=== PATIENT | male | born 1985 | race African-American/Black ===

== ENCOUNTER 2019-06-15 21:36 | Emergency (ER) | payer OTHER ==
--- NOTE | 2019-06-15 22:19 | ER Document Report ---
ED General - General Chief Complaint: Productive Cough Stated Complaint: COUGH,WHEEZING Time Seen by Provider: 06/15/19 22:12 Primary Care Provider: MARNI LUIS [Primary Care Provider] - 06/19/19 Notes: Patient is a pleasant 33-year-old male who presents with complaint of difficulty breathing. He says is been ongoing for 2 weeks. He has no history of asthma. He is a smoker. He has been coughing some. He has had some intermittent wheezing. No history of PE or DVT. No leg swelling or edema. No other complaints at this time. No fevers. Does not take any medications on a regular basis. TRAVEL OUTSIDE OF THE [place] IN LAST 30 DAYS: No - Related Data Allergies/Adverse Reactions: No Known Allergies Allergy (Verified 06/15/19 21:38) Past Medical History - Social History Smoking Status: Current Every Day Smoker Frequency of alcohol use: None Drug Abuse: None Family History: Reviewed & Not Pertinent - Past Medical History Cardiac Medical History: Reports: Hx Hypertension Psychiatric Medical History: Reports: Hx Anxiety - Immunizations Immunizations up to date: Yes Hx Diphtheria, Pertussis, Tetanus Vaccination: Yes Review of Systems - Review of Systems Notes: My Normal Review Basic REVIEW OF SYSTEMS: CONSTITUTIONAL : Denies fever, chills, or sweats. Denies recent illness. EENT: Denies eye, ear, throat, or mouth pain or symptoms. Denies nasal or sinus congestion. CARDIOVASCULAR: Denies chest pain. RESPIRATORY: Denies cough, cold, or chest congestion. Difficulty breathing and coughing GASTROINTESTINAL: Denies abdominal pain. Denies nausea, vomiting, or diarrhea. MUSCULOSKELETAL: Denies neck or back pain or joint pain or swelling. SKIN: Denies rash or skin lesions. NEUROLOGICAL: Denies altered mental status or loss of consciousness. Denies headache. Denies weakness or paralysis or loss of use of either side. Denies problems with gait or speech. Denies sensory or motor loss. ALL OTHER SYSTEMS REVIEWED AND NEGATIVE. Physical Exam - Vital signs Vitals: Temp Pulse Resp BP Pulse Ox 98.8 F 130 H 22 H 180/121 H 97 06/15/19 21:51 06/15/19 21:51 06/15/19 21:51 06/15/19 21:51 06/15/19 21:51 - Notes Notes: General Appearance: Well nourished, alert, cooperative, no acute distress, no obvious discomfort. Vitals: reviewed, See vital signs table. Head: no swelling or tenderness to the head Eyes: PERRL, EOMI, Conjuctiva clear Mouth: No decreasd moisture Throat: No tonsillar inflammation, No airway obstruction, No lymphadenopathy Neck: Supple, no neck tenderness Lungs: No wheezing, No rales, No rhonci, No accessory muscle use, good air exchange bilaterally. Heart: Tachycardic rate, Regular rythm, No murmur, no rub Abdomen: Normal BS, soft, No rigidity, No abdominal tenderness, No guarding, no rebound, no abdominal masses, no organomegaly Extremities: strength 5/5 in all extremities, good pulses in all extremities, no swelling or tenderness in the extremities Skin: warm, dry, appropriate color, no rash Neuro: speech clear, oriented x 3, normal affect, responds appropriately to questions. Course - Re-evaluation Re-evalutation: 06/15/19 22:27 Patient currently is very tachycardic and apparently is again short of breath on exertion. When into the room sitting in bed looks very comfortable. He said he said some normal wheezing however his lung kirk are completely clear at this time and he has good air movement yet he still very tachycardic. We will start off with the chest x-ray. If this is negative then I will proceed to a CTa of the chest. 06/16/19 03:16 CTa of the chest was negative. His tachycardia is improved. He did receive amlodipine for his high blood pressure. He has not had any adverse reactions to this. He does have the T wave inversions in lateral precordial leads as well as an indeterminate troponin. I suspect this is probably related to his chronic untreated hypertension; however, I informed him that we do need to repeat his troponin to make sure it is not increasing and that is staying below [place] threshold. Patient initially agreeable to this. Approximately 10 minutes after I spoke with the patient the nurse came and informed her that the patient no longer wants to stay and has to leave because his has to go to work. I have went back in informed the patient that I still feel that we need to do this test to make sure that his heart enzyme is negative. Patient says that he cannot stay. I therefore have offered to have him to draw the test and then discharge him and I have gotten the patient's phone number to call back with the results. Patient is agreeable to this. I suspect the patient's difficulty breathing and intermittent wheezing likely is related to exposure of mold in his house. Patient says he has mold in the house that he is renting and he has noticed that anytime he is at home he starts wheezing and having difficulty breathing but when he gets away from the house the coughing wheezing gets better. Since he has been here and away from his house he has not had any wheezing and he initially had a little cough but that has resolved without any intervention. His lung kirk remain completely clear and his oxygen saturation is normal. He says he does have another place he can stay at. He said he will contact his landlord in regards to the mold in his house to make sure that he is no longer having to stay there. Patient strongly encouraged to return to ER immediately if he has any recurrence of his symptoms, any chest pain, fevers, or if he feels that he is worsening in any way. Patient agrees with plan will be discharged home as he request. Dictation of this chart was performed using voice recognition software; therefore, there may be some unintended grammatical errors. - Vital Signs Vital signs: Temp Pulse Resp BP Pulse Ox 98.6 F 103 H 20 157/122 H 100 06/16/19 03:00 06/16/19 03:00 06/16/19 03:00 06/16/19 03:00 06/16/19 03:00 - Laboratory Result Diagrams: 06/15/19 22:36 06/15/19 22:36 Laboratory results interpreted by me: 06/15/19 22:36 Hgb 12.9 L - EKG Interpretation by Me Additional EKG results interpreted by me: 06/15/19 22:19 EKG is reviewed and interpreted by me. EKG shows sinus tachycardia with a rate of [address] segment elevation or depression. He does have some T wave inversions in the lateral precordial leads. NH interval, QRS duration, QT in tervals are within normal range. No old EKG available for comparison. Discharge - Discharge Clinical Impression: Dyspnea Qualifiers: Dyspnea type: unspecified Qualified Code(s): R06.00 - Dyspnea, unspecified Condition: Stable Disposition: HOME, SELF-CARE Additional Instructions: I suspect your difficulty breathing is likely related to mold exposure in your house. This is because your breathing is worse when you are at the house. Your breathing has been good since you have been here and your lung kirk are clear. CT scan of your lungs did not show any blood clots. You do have high blood pressure. I will start you on medication called amlodipine. Please start taking this medication every day. I did repeat your heart enzyme. As discussed with you, we are awaiting the results of this. I will call you later today with the results. If this heart enzyme is elevated you will have to return to the ER for further treatment and work-up. Please return to ER immediately if you have recurrent difficulty breathing, any chest pain, passing out episodes, or if you feel like you are worsening in any way. Please follow up with your primary care doctor for reevaluation on Wednesday or Wednesday and also for continued management of your high blood pressure. Prescriptions: Amlodipine Besylate [Norvasc 5 mg Tablet] 5 mg PO DAILY #30 tablet Forms: Return to Work Referrals: [facility] [[facility] Care [facility]] - 06/19/19
[2019-06-15 22:59] LABS: ABSOLUTE BASOPHILS # (AUTO) 0.1 10^3/uL (0.0-0.2); ABSOLUTE LYMPHOCYTES (AUTO) 2.2 10^3/uL (0.5-4.7); ABSOLUTE MONOCYTES (AUTO) 0.7 10^3/uL (0.1-1.4); ABSOLUTE NEUT (AUTO) 3.9 10^3/uL (1.7-8.2); BASOPHILS % (AUTO) 1.1 % (0-2); EOSINOPHILS % (AUTO) 0.7 % (0-6); HEMATOCRIT 38.1 % (37.9-51.0); HEMOGLOBIN 12.9 g/dL (13.5-17.0); LYMPHOCYTES % (AUTO) 31.8 % (13-45); MEAN CORPUSCULAR HEMOGLOBIN 27.6 pg (27.0-33.4); MEAN CORPUSCULAR HGB CONC 33.8 g/dL (32.0-36.0); MEAN CORPUSCULAR VOLUME 82 fl (80-97); MONOCYTES % (AUTO) 9.7 % (3-13); PLATELET COUNT 220 10^3/uL (150-450); RED BLOOD COUNT 4.66 10^6/uL (4.35-5.55); RED CELL DISTRIBUTION WIDTH 13.9 % (11.5-14.0); SEGMENTED NEUTROPHILS % (AUTO) 56.7 % (42-78); TOTAL CELLS COUNTED % (AUTO) 100 %; WHITE BLOOD COUNT 6.9 10^3/uL (4.0-10.5)
[2019-06-15 23:09] LABS: ALANINE AMINOTRANSFERASE 22 U/L (21-72); ALBUMIN 4.6 g/dL (3.5-5.0); ALKALINE PHOSPHATASE 79 U/L (38-126); ANION GAP 10 (5-19); ASPARTATE AMINO TRANSFERASE 28 U/L (17-59); BILIRUBIN,DIRECT 0.1 mg/dL (0.0-0.4); BILIRUBIN,TOTAL 0.9 mg/dL (0.2-1.3); BLOOD UREA NITROGEN 12 mg/dL (7-20); CARBON DIOXIDE 29 mmol/L (22-30); CHLORIDE 102 mmol/L (98-107); GLUCOSE 95 mg/dL (75-110); POTASSIUM 3.9 mmol/L (3.6-5.0); TOTAL PROTEIN 7.8 g/dL (6.3-8.2)
[2019-06-15] MEDS ORDERED: NORMAL SALINE 500 ML IV ONE (23:28)
[2019-06-15 23:29] LABS: VENOUS BLOOD BASE EXCESS 0.1 mmol/L; VENOUS BLOOD HCO3 25.1 mmol/L (20-32); VENOUS BLOOD PCO2 42.2 mmHg (35-63); VENOUS BLOOD PH 7.39 (7.30-7.42)
--- NOTE | 2019-06-16 01:32 | RADIOLOGY REPORT (SQ) ---
EXAM DESCRIPTION: CT CHEST ANGIOGRAPHY WITHOUT THEN WITH IV CONTRAST COMPLETED DATE/TME: 06/15/2019 23:28 CLINICAL HISTORY: 33 years Male, dyspnea, tachycardia Comparison: CR, same day. Technique: IV contrast. Coronal and sagittal reformat. 3d reconstruction. This exam was performed according to our departmental dose-optimization program, which includes automated exposure control, adjustment of the mA and/or kV according to patient size and/or use of iterative reconstruction technique.[facility]: Dose Right [facility]: CareDose [facility]: Dose Right [facility]: Teradose 4D [facility]: [employer] LIMITATIONS: None Findings: No pulmonary embolus. No right ventricular strain. Clear lungs. Gynecomastia. Inferior neck, axillae, mediastinum, airway, lymphatics, heart, vasculature, upper abdomen, and musculoskeleton appear otherwise unremarkable. Impression: No pulmonary embolus. No acute cardiopulmonary findings.
[2019-06-16] MEDS ORDERED: AMLODIPINE BESYLATE 5 MG TABLET PO ONE (02:45)
[2019-06-16 03:02] VITALS: BP 157/122
[2019-06-16 04:15] LABS: TROPONIN I 0.087 ng/mL
--- NOTE | 2019-06-16 05:55 | RADIOLOGY REPORT (SQ) ---
Chest single view on 06/15/2019 at 10:57 PM CLINICAL INDICATION: Shortness of breath COMPARISON: None FINDINGS: There is mild elevation of the right hemidiaphragm. Mild cardiomegaly is noted. Bilateral interstitial opacities are consistent with mild edema. Hilar and mediastinal contours are within normal limits. No bony abnormality is noted. IMPRESSION: Findings consistent with mild changes of CHF.
--- NOTE | 2019-06-16 14:30 | EKG REPORT ---
SEVERITY:- ABNORMAL ECG - SINUS TACHYCARDIA ABNORMAL T, CONSIDER ISCHEMIA, LATERAL LEADS : Confirmed by: Clementina Castillo MD 16-Jun-2019 14:30:15
== END 2019-06-16 03:34 | disposition home or self-care (01) ==
LOC: ER 21:36
DX: R06.00 Dyspnea, unspecified (principal); R05 Cough; R06.2 Wheezing; F17.200 Nicotine dependence, unspecified, uncomplicated; I10 Essential (primary) hypertension; F41.9 Anxiety disorder, unspecified
CPT/HCPCS: 93005; 99284; 96360; 36415; 85025; 80053; 84484; 82803; 83880; 71045; 71275; 93010; J7040

== ENCOUNTER 2019-08-30 19:46 | Inpatient (IN) | payer OTHER ==
[2019-08-30] MEDS ORDERED: ASPIRIN 81 MG TABLET, CHEWABLE PO ONE (20:10)
--- NOTE | 2019-08-30 20:13 | ER Document Report ---
ED Medical Screen (RME) - General Chief Complaint: Shortness Of Breath Stated Complaint: SHORTNESS OF BREATH Time Seen by Provider: 08/30/19 20:06 Primary Care Provider: MARNI LUIS [Primary Care Provider] - Follow up as needed Notes: Patient is a 34-year-old male who presents emergency department with a chief complaint of shortness of breath. He states that he has felt shortness of breath for the past week. Today he started to have some chest pain. States the pain is on the left side of his chest. Patient denies any fevers. Past medical history includes hypertension he is currently on amlodipine. States that he ran out of his medication yesterday. Exam: Tachycardic. Diminished breath sounds in the bases. I have greeted and performed a rapid initial assessment of this patient. A comprehensive ED assessment and evaluation of the patient, analysis of test results and completion of medical decision making process will be conducted by an additional ED providers. TRAVEL OUTSIDE OF THE [place] IN LAST 30 DAYS: No - Related Data Allergies/Adverse Reactions: No Known Allergies Allergy (Verified 08/30/19 20:01) Past Medical History - Social History Chew tobacco use (# tins/day): No Frequency of alcohol use: None Drug Abuse: None - Past Medical History Cardiac Medical History: Reports: Hx Hypertension Renal/ Medical History: Denies: Hx Peritoneal Dialysis Psychiatric Medical History: Reports: Hx Anxiety - Immunizations Immunizations up to date: Yes Hx Diphtheria, Pertussis, Tetanus Vaccination: Yes Physical Exam - Vital signs Vitals: Temp Pulse Resp BP Pulse Ox 98.3 F 130 H 18 157/116 H 99 08/30/19 19:51 08/30/19 19:51 08/30/19 19:51 08/30/19 19:51 08/30/19 19:51 Course - Vital Signs Vital signs: Temp Pulse Resp BP Pulse Ox 98.3 F 131 H 22 H 164/115 H 100 08/30/19 20:01 08/30/19 20:01 08/30/19 20:01 08/30/19 20:01 08/30/19 20:01 Doctor's Discharge - Discharge Referrals: [facility] [Primary Care Provider] - Follow up as needed
[2019-08-30 20:48] LABS: ABSOLUTE EOSINOPHILS # (AUTO) 0.1 10^3/uL (0.0-0.6); ABSOLUTE LYMPHOCYTES (AUTO) 1.6 10^3/uL (0.5-4.7); ABSOLUTE MONOCYTES (AUTO) 0.5 10^3/uL (0.1-1.4); ABSOLUTE NEUT (AUTO) 3.3 10^3/uL (1.7-8.2); BASOPHILS % (AUTO) 0.2 % (0-2); HEMATOCRIT 37.3 % (37.9-51.0); HEMOGLOBIN 12.1 g/dL (13.5-17.0); LYMPHOCYTES % (AUTO) 29.4 % (13-45); MEAN CORPUSCULAR HGB CONC 32.5 g/dL (32.0-36.0); MEAN CORPUSCULAR VOLUME 83 fl (80-97); MONOCYTES % (AUTO) 9.6 % (3-13); PLATELET COUNT 212 10^3/uL (150-450); RED CELL DISTRIBUTION WIDTH 14.4 % (11.5-14.0); SEGMENTED NEUTROPHILS % (AUTO) 59.8 % (42-78); TOTAL CELLS COUNTED % (AUTO) 100 %; WHITE BLOOD COUNT 5.4 10^3/uL (4.0-10.5)
--- NOTE | 2019-08-30 20:49 | ER Document Report ---
Entered by ROSAURA MTZ SCRIBE 08/30/192030 Acting as scribe for:DASH GILES MD ED General - General Chief Complaint: Shortness Of Breath Stated Complaint: SHORTNESS OF BREATH Time Seen by Provider: 08/30/19 20:06 Primary Care Provider: TOBY,MARNI [Primary Care Provider] - Follow up as needed Notes: 34-year-old male who presents to the emergency department today with complaints of shortness of breath, cough, and right-sided chest pain which began last week. Patient states he ran out of his blood pressure medicine yesterday and also stopped smoking yesterday. When reviewing the records, the patient received amlodipine #30 on 06/16/2019 and today's date is 08/30/2019. Patient was seen here on June 15, 2019 for shortness of breath and at that time he seemed to think that his symptoms were coming from mold in his house. Patient stated that when he left the house his symptoms would go away and when he would go back in the house his symptoms would start again. Patient states he left that house for several weeks and the symptoms never went away. TRAVEL OUTSIDE OF THE [place] IN LAST 30 DAYS: No - Related Data Allergies/Adverse Reactions: No Known Allergies Allergy (Verified 08/30/19 20:01) Past Medical History - General Information source: Patient - Social History Smoking Status: Current Every Day Smoker Cigarette use (# per day): Yes Chew tobacco use (# tins/day): No Frequency of alcohol use: None Drug Abuse: None Lives with: Family Family History: Reviewed & Not Pertinent Patient has suicidal ideation: No Patient has homicidal ideation: No - Past Medical History Cardiac Medical History: Reports: Hx Hypertension Psychiatric Medical History: Reports: Hx Anxiety - Immunizations Immunizations up to date: Yes Hx Diphtheria, Pertussis, Tetanus Vaccination: Yes Review of Systems - Review of Systems Constitutional: No symptoms reported EENT: No symptoms reported Cardiovascular: See HPI, Chest pain Respiratory: See HPI, Cough, Short of breath Gastrointestinal: No symptoms reported Genitourinary: No symptoms reported Male Genitourinary: No symptoms reported Musculoskeletal: No symptoms reported Skin: No symptoms reported Hematologic/Lymphatic: No symptoms reported Neurological/Psychological: No symptoms reported -: Yes All other systems reviewed and negative Physical Exam - Vital signs Vitals: Temp Pulse Resp BP Pulse Ox 98.3 F 130 H 18 157/116 H 99 08/30/19 19:51 08/30/19 19:51 08/30/19 19:51 08/30/19 19:51 08/30/19 19:51 - Notes Notes: Physical Exam: General: Alert, appears well. HEENT: Normocephalic. Atraumatic. PERRL. Extraocular movements intact. Oropharynx clear. Neck: Supple. Non-tender. Respiratory: No respiratory distress. Coarse breath sounds bilaterally with mild rales. Cardiovascular: Tachycardic, regular rhythm. Abdominal: Normal Inspection. Non-tender. No distension. Normal Bowel Sounds. Back: No gross abnormalities. Extremities: Moves all four extremities. Upper extremities: Normal inspection. Normal ROM. Lower extremities: Normal inspection. No edema. Normal ROM. Neurological: Normal cognition. AAOx4. Normal speech. Psychological: Normal affect. Normal Mood. Skin: Warm. Dry. Normal color. Course - Vital Signs Vital signs: Temp Pulse Resp BP Pulse Ox 98.3 F 131 H 25 H 170/123 H 99 08/30/19 20:01 08/30/19 20:01 08/30/19 22:31 08/30/19 22:31 08/30/19 22:31 - Laboratory Result Diagrams: 08/30/19 20:35 08/30/19 20:35 Laboratory results interpreted by me: 08/30/19 08/30/19 08/30/19 20:35 20:35 20:35 Hgb 12.1 L Hct 37.3 L RDW 14.4 H Creatinine 1.27 H Creatine Kinase 231 H NT-Pro-B Natriuret Pep 2160 H Urine Protein Urine Ketones 08/30/19 21:30 Hgb Hct RDW Creatinine Creatine Kinase NT-Pro-B Natriuret Pep Urine Protein 30 H Urine Ketones TRACE H - Diagnostic Test Radiology reviewed: Image reviewed, Reports reviewed - Seizure medicine pulmonary edema - EKG Interpretation by Me EKG shows normal: Sinus rhythm, [place], Intervals, QRS Complexes. abnormal: ST-T Waves - Lateral T wave abnormalities Rate: Tachycardia - 132 P Waves: LAE When compared to previous EKG there are: No significant change - Consults Dr. Escobar Time consulted: 23:44 Consulted provider: will come to ER Discharge - Discharge Clinical Impression: Congestive heart failure (CHF) Qualifiers: Heart failure type: unspecified Heart failure chronicity: unspecified Qualified Code(s): I50.9 - Heart failure, unspecified Hypertensive cardiomyopathy Qualifiers: Heart failure presence: with heart failure Qualified Code(s): I11.0 - Hypertensive heart disease with heart failure; I43 - Cardiomyopathy in diseases classified elsewhere Condition: Fair Disposition: ADMITTED INPATIENT Admitting Provider: Luz (Hospitalist) Unit Admitted: Telemetry Referrals: [facility] [Primary [facility]] - Follow up as needed Scribe Attestation: 08/30/19 21:44 I personally performed the services described in the documentation, reviewed and edited the documentation which was dictated to the scribe in my presence, and it accurately records my words and actions. I personally performed the services described in the documentation, reviewed and edited the documentation which was dictated to the scribe in my presence, and it accurately records my words and actions.
[2019-08-30] MEDS ORDERED: FUROSEMIDE INJ/PF 20 MG/2 ML SDV IV ONE (20:51)
--- NOTE | 2019-08-30 20:54 | RADIOLOGY REPORT (SQ) ---
EXAM DESCRIPTION: XR CHEST 1 VIEW COMPLETED DATE/TME: 08/30/2019 20:10 CLINICAL HISTORY: chest pain COMPARISON: June 15, 2019 FINDINGS: Cardiac silhouette is unchanged compared with the prior exam. Indistinctness of the pulmonary markings could be secondary to pulmonary edema. EKG leads project over the chest. There is no pneumothorax. There is no acute osseous process visualized. IMPRESSION: Indistinctness of the pulmonary markings could be secondary to pulmonary edema. Interstitial pneumonitis is not excluded.
[2019-08-30 20:56] LABS: VENOUS BLOOD BASE EXCESS 1.2 mmol/L; VENOUS BLOOD HCO3 26.2 mmol/L (20-32); VENOUS BLOOD PCO2 42.9 mmHg (35-63); VENOUS BLOOD PH 7.4 (7.30-7.42)
[2019-08-30 21:14] LABS: ANISOCYTOSIS SLIGHT; PLATELET COMMENT ADEQUATE; PLATELET LARGE PRESENT
[2019-08-30 21:18] LABS: ALBUMIN 4.3 g/dL (3.5-5.0); ALKALINE PHOSPHATASE 79 U/L (38-126); ANION GAP 8 (5-19); ASPARTATE AMINO TRANSFERASE 27 U/L (17-59); BILIRUBIN,DIRECT 0.1 mg/dL (0.0-0.4); BLOOD UREA NITROGEN 12 mg/dL (7-20); CALCIUM 9.8 mg/dL (8.4-10.2); CARBON DIOXIDE 27 mmol/L (22-30); CHLORIDE 105 mmol/L (98-107); CREATINE KINASE 231 U/L (55-170); GLUCOSE 100 mg/dL (75-110); POTASSIUM 4.6 mmol/L (3.6-5.0); TOTAL PROTEIN 7.4 g/dL (6.3-8.2)
[2019-08-30 21:30] LABS: CREATINE KINASE MB 2.49 ng/mL (<4.55)
[2019-08-30 21:41] LABS: TROPONIN I 0.075 ng/mL
[2019-08-30 21:51] LABS: APPEARANCE,URINE CLEAR; BILIRUBIN,URINE NEGATIVE (NEGATIVE); COLOR,URINE YELLOW; GLUCOSE, URINE NEGATIVE (NEGATIVE); KETONES,URINE TRACE mg/dL (NEGATIVE); LEUKOCYTE ESTERASE,URINE NEGATIVE (NEGATIVE); NITRITE,URINE NEGATIVE (NEGATIVE); PROTEIN,URINE 30 mg/dL (NEGATIVE); URINE SPECIFIC GRAVITY 1.019; UROBILINOGEN,URINE NEGATIVE mg/dL (<2.0)
[2019-08-30 22:05] LABS: URINE AMPHETAMINES SCREEN NEGATIVE; URINE BARBITURATES SCREEN NEGATIVE; URINE BENZODIAZEPINES SCREEN NEGATIVE; URINE COCAINE SCREEN NEGATIVE; URINE MARIJUANA (THC) SCREEN UNCONFIRMED POSITIVE; URINE METHADONE SCREEN NEGATIVE; URINE PHENCYCLIDINE SCREEN NEGATIVE
[2019-08-30] MEDS ORDERED: METOPROLOL TARTRATE 100 MG TABLET PO ONE (23:50)
[2019-08-31] MEDS ORDERED: MAG HYDROX/AL HYDROX/SIMETH SUSP 30 ML UDCUP PO PRN (02:49)
[2019-08-31] MEDS ORDERED: MAGNESIUM HYDROXIDE SUSP 30 ML UDCUP PO PRN (02:49)
[2019-08-31] MEDS: HEPARIN SOD (PORCINE) 5,000 UNIT/ML 1 ML VIAL SUBCUT SCH ×3 (05:53→22:09)
--- NOTE | 2019-08-31 06:38 | PDOC H&P ---
History of Present Illness Admission Date/PCP: 08/30/2019 23:44 [facility] Patient complains of: Dyspnea History of Present Illness: ALISSA SAUNDERS is a 34 year old male resents the emergency room with a one-week history of dyspnea. Patient admits gradually worsening dyspnea over the course of the last 7 days becoming severe over the last 24 hours. His dyspnea has been so severe that he had to stop smoking cigarettes. He admits his dyspnea worsens on exertion and has been accompanied by a mild nonproductive cough and occasional right-sided chest discomfort. He denies other associated or accompanying signs and symptoms. He he admits prior similar episodes with the most recent being 3 months ago at which time he was diagnosed with hypertension and treated with amlodipine. He was given a prescription for a 30-day supply of amlodipine in the emergency room on June 16 and states that he has been taking the medication as prescribed and just ran out yesterday. He has not identified any additional aggravating or ameliorating factors for his dyspnea. In the emergency room patient was found to have a BNP greater than 2000 and a chest x- ray demonstrating congestive heart failure. Patient was also noted to be tachycardic, tachypneic and hypertensive and was treated initially with oral metoprolol. He was subsequently admitted to the hospital for further evaluation and treatment. Past Medical History Cardiac Medical History: Reports: Hypertension Denies: Coronary Artery Disease, Myocardial Infarction Pulmonary Medical History: Denies: Asthma, Chronic Obstructive Pulmonary Disease (COPD) EENT Medical History: Denies: Cataracts, Ears - Hearing aids Neurological Medical History: Denies: Hemorrhagic CVA, Ischemic CVA, Seizures Endocrine Medical History: Denies: Diabetes Mellitus Type 1, Diabetes Mellitus Type 2, Hyperthyroidism, Hypothyroidism Renal/ Medical History: Denies: Chronic Kidney Disease, Nephrolithiasis Malignancy Medical History: Reports: None GI Medical History: Denies: Cirrhosis, Hepatitis Musculoskeltal Medical History: Denies: Arthritis, Gout Skin Medical History: Denies: Eczema, Psoriasis Psychiatric Medical History: Reports: Substance Abuse, Tobacco Dependency Denies: Alcohol Dependency Traumatic Medical History: Reports: None Hematology: Denies: Anemia, Bleeding Tendencies Infectious Medical History: Reports: None Past Surgical History Past Surgical History: Reports: None Social History Information Source: Patient Lives with: Family Smoking Status: Current Every Day Smoker Electronic Cigarette use?: No Frequency of Alcohol Use: Occasional Hx Recreational Drug Use: Yes Drugs: Marijuana Hx Prescription Drug Abuse: No - Advance Directive Resuscitation Status: Full Code Surrogate healthcare decision maker:: Yuni Rayo Family History Family History: CAD, DM, Hypertension, Other - Congestive heart failure Parental Family History Reviewed: Yes Children Family History Reviewed: No Sibling(s) Family History Reviewed.: Yes Medication/Allergy Home Medications: Amlodipine Besylate [Norvasc 5 mg Tablet] 5 mg PO DAILY #30 tablet 06/16/19 Allergies/Adverse Reactions: No Known Allergies Allergy (Verified 08/30/19 20:01) Review of Systems Constitutional: ABSENT: chills, fever(s) Eyes: ABSENT: visual disturbances, other - Eye pain Ears: ABSENT: hearing changes, other - Ear pain Nose, Mouth, and Throat: ABSENT: mouth pain, sore throat Cardiovascular: PRESENT: as per HPI, chest pain - Right-sided intermittent, dyspnea on exertion. ABSENT: palpitations Respiratory: PRESENT: as per HPI, cough, dyspnea. ABSENT: sputum Gastrointestinal: ABSENT: abdominal pain, constipation, diarrhea, nausea, vomiting Genitourinary: ABSENT: dysuria, hematuria Musculoskeletal: ABSENT: back pain, joint swelling, muscle weakness Integumentary: ABSENT: pruritus, rash Neurological: ABSENT: confusion, convulsions, focal weakness, memory loss, syncope Psychiatric: ABSENT: anxiety, depression Endocrine: ABSENT: cold intolerance, heat intolerance Hematologic/Lymphatic: ABSENT: easy bleeding, easy bruising Allergic/Immunologic: ABSENT: seasonal rhinorrhea Physical Exam Vital Signs: Temp Pulse Resp BP Pulse Ox 98.3 F 131 H 25 H 170/123 H 99 08/30/19 20:01 08/30/19 20:01 08/30/19 22:31 08/30/19 22:31 08/30/19 22:31 Intake & Output 08/28/19 08/29/19 08/30/19 23:59 23:59 23:59 Weight 107.4 kg General appearance: PRESENT: cooperative, mild distress - Secondary to dyspnea Head exam: PRESENT: atraumatic, normocephalic Eye exam: PRESENT: conjunctiva pink. ABSENT: conjunctival injection, scleral icterus Ear exam: PRESENT: normal external ear exam. ABSENT: bleeding, drainage Mouth exam: PRESENT: dry mucosa, neck supple Neck exam: PRESENT: JVD. ABSENT: thyromegaly, tracheal deviation Respiratory exam: PRESENT: rales - Bibasilar fine rales noted in the lower one third of both lung kirk., symmetrical, tachypnea Cardiovascular exam: PRESENT: gallop - S4 gallop noted, RRR, tachycardia. ABSENT: clicks, rubs Pulses: PRESENT: normal radial pulses, normal dorsalis pedis pul Vascular exam: PRESENT: normal capillary refill. ABSENT: pallor GI/Abdominal exam: PRESENT: normal bowel sounds, soft Rectal exam: PRESENT: deferred Extremities exam: ABSENT: joint swelling, pedal edema Neurological exam: PRESENT: alert, oriented to person, oriented to place, oriented to time, oriented to situation, CN II-XII grossly intact. ABSENT: motor sensory deficit Psychiatric exam: PRESENT: appropriate affect, normal mood Skin exam: PRESENT: dry, intact, warm. ABSENT: jaundice, rash, urticaria Results Laboratory Results: 08/30/19 20:35 08/30/19 20:35 08/30/19 08/30/19 08/30/19 20:35 20:35 20:35 WBC 5.4 RBC 4.50 Hgb 12.1 L Hct 37.3 L MCV 83 MCH 27.0 MCHC 32.5 RDW 14.4 H Plt Count 212 Seg Neutrophils % 59.8 VBG pH 7.40 VBG pCO2 42.9 VBG HCO3 26.2 VBG Base Excess 1.2 Sodium 140.3 Potassium 4.6 Chloride 105 Carbon Dioxide 27 Anion Gap 8 BUN 12 Creatinine 1.27 H Est GFR ( Amer) > 60 Glucose 100 Calcium 9.8 Magnesium 1.9 Total Bilirubin 1.0 AST 27 Alkaline Phosphatase 79 Total Protein 7.4 Albumin 4.3 Urine Color Urine Appearance Urine pH Ur Specific [place] Urine Protein Urine Glucose (UA) Urine Ketones Urine Blood Urine Nitrite Ur Leukocyte Esterase Urine WBC (Auto) Urine RBC (Auto) 08/30/19 21:30 WBC RBC Hgb Hct MCV MCH MCHC RDW Plt Count Seg Neutrophils % VBG pH VBG pCO2 VBG HCO3 VBG Base Excess Sodium Potassium Chloride Carbon Dioxide Anion Gap BUN Creatinine Est GFR ( Amer) Glucose Calcium Magnesium Total Bilirubin AST Alkaline Phosphatase Total Protein Albumin Urine Color YELLOW Urine Appearance CLEAR Urine pH 6.0 Ur Specific [place] 1.019 Urine Protein 30 H Urine Glucose (UA) NEGATIVE Urine Ketones TRACE H Urine Blood NEGATIVE Urine Nitrite NEGATIVE Ur Leukocyte Esterase NEGATIVE Urine WBC (Auto) 1 Urine RBC (Auto) 0 10/16/19 10/16/19 20:35 20:35 Creatine Kinase 231 H CK-MB (CK-2) 2.49 Troponin I 0.075 NT-Pro-B Natriuret Pep 2160 H Impressions: Chest X-Ray 08/30/19 20:10 IMPRESSION: Indistinctness of the pulmonary markings could be secondary to pulmonary edema. Interstitial pneumonitis is not excluded. Assessment and Plan - Diagnosis (1) Congestive heart failure (CHF) Qualifiers: Heart failure type: unspecified Heart failure chronicity: acute on chronic Qualified Code(s): I50.9 - Heart failure, unspecified Is this a current diagnosis for this admission?: Yes Plan: Patient will be evaluated with an echocardiogram and a cardiac consultation will be obtained with Dr. Castillo. Serial cardiac enzymes will be obtained. Patient will be started on therapy utilizing metoprolol, lisinopril and Spironolactone. Further evaluation will be based on Dr. Castillo's recommendation. Serial CBCs metabolic profiles will be obtained as will also be serial magnesium levels. (2) Hypertension Qualifiers: Hypertension type: essential hypertension Qualified Code(s): I10 - Essential (primary) hypertension Is this a current diagnosis for this admission?: Yes Plan: Patient will be treated with medications to control both hypertension and congestive heart failure. Please see problem #1 patient's blood pressure be evaluated frequently throughout his hospital course with vital signs. Serial metabolic profiles will be obtained as part of his evaluation. (3) Proteinuria Qualifiers: Proteinuria type: unspecified Qualified Code(s): R80.9 - Proteinuria, unspecified Is this a current diagnosis for this admission?: Yes Plan: Patient's proteinuria will be followed on an ongoing basis and his post hospital setting. (4) Tobacco use disorder, severe, dependence Is this a current diagnosis for this admission?: Yes Plan: Smoking cessation is advised and counseled briefly at the bedside. A nicotine replacement patch is available for patients use if desired. - Time Time Spent with patient: 25-34 minutes Medications reviewed and adjusted accordingly: Yes Anticipated discharge: Home - Inpatient Certification Based on my medical assessment, after consideration of the patient's comorbidities, presenting symptoms, or acuity I expect that the services needed warrant INPATIENT care.: Yes I certify that my determination is in accordance with my understanding of Medicare's requirements for reasonable and necessary INPATIENT services [42 CFR 412.3e].: Yes Medical Necessity: Need Close Monitoring Due to Risk of Patient Decompensation, Need For Continuous Telemetry Monitoring, Risk of Complication if Not Cared For in Hospital, Risk of Diagnosis Which Will Require Inpatient Eval/Care/Monitoring
[2019-08-31 07:51] LABS: CREATINE KINASE MB 1.1 ng/mL (<4.55); TROPONIN I 0.059 ng/mL
[2019-08-31 07:57] LABS: FREE T3 4.45 pg/mL (2.77-5.27); FREE T4 (FREE THYROXINE) 1.41 ng/dL (0.78-2.19)
[2019-08-31 08:10] LABS: THYROID STIMULATING HORMONE 0.68 uIU/mL (0.47-4.68)
--- NOTE | 2019-08-31 09:11 | EKG REPORT ---
SEVERITY:- ABNORMAL ECG - SINUS TACHYCARDIA PROBABLE LEFT ATRIAL ABNORMALITY ABNORMAL T, CONSIDER ISCHEMIA, LATERAL LEADS BORDERLINE PROLONGED QT INTERVAL : Confirmed by: Sheyrl Edwards 31-Aug-2019 09:10:38
--- NOTE | 2019-08-31 09:11 | EKG REPORT ---
SEVERITY:- ABNORMAL ECG - SINUS TACHYCARDIA PROBABLE LEFT ATRIAL ABNORMALITY ABNORMAL T, CONSIDER ISCHEMIA, LATERAL LEADS : Confirmed by: Sheryl Edwards 31-Aug-2019 09:10:51
[2019-08-31] MEDS ORDERED: NITROGLYCERIN 2% OINTMENT 1 GM PACKET TP ONE (09:29)
[2019-08-31] MEDS ORDERED: MORPHINE SULFATE 10 MG/ML INJ IV ONE (09:29)
[2019-08-31] MEDS ORDERED: FUROSEMIDE INJ/PF 40 MG/4 ML SDV IV ONE (09:29)
--- NOTE | 2019-08-31 09:40 | PDOC PROGRESS REPORT ---
Subjective Progress Note for:: 08/31/19 Subjective:: 08/21/2019-shortness of breath, diaphoresis Reason For Visit: CONGESTIVE HEART FAILURE Physical Exam Vital Signs: Temp Pulse Resp BP Pulse Ox 97.6 F 131 H 16 117/82 98 08/31/19 08:59 08/30/19 20:01 08/31/19 08:59 08/31/19 08:59 08/31/19 08:59 Intake & Output 08/30/19 08/31/19 09/01/19 06:59 06:59 06:59 Output Total 500 Balance -500 Weight 107.4 kg General appearance: PRESENT: no acute distress, well-developed, well-nourished Head exam: PRESENT: atraumatic, normocephalic Eye exam: PRESENT: conjunctiva pink, EOMI, PERRLA. ABSENT: scleral icterus Ear exam: PRESENT: normal external ear exam Mouth exam: PRESENT: moist, tongue midline Neck exam: ABSENT: carotid bruit, JVD, lymphadenopathy, thyromegaly Respiratory exam: PRESENT: decreased breath sounds, rales, symmetrical, tachypnea, unlabored. ABSENT: rhonchi, wheezes Cardiovascular exam: PRESENT: RRR. ABSENT: diastolic murmur, rubs, systolic murmur Pulses: PRESENT: normal dorsalis pedis pul Vascular exam: PRESENT: normal capillary refill GI/Abdominal exam: PRESENT: normal bowel sounds, soft. ABSENT: distended, guarding, mass, organolmegaly, rebound, tenderness Rectal exam: PRESENT: deferred Extremities exam: PRESENT: full ROM. ABSENT: calf tenderness, clubbing, pedal edema Neurological exam: PRESENT: alert, awake, oriented to person, oriented to place, oriented to time, oriented to situation, CN II-XII grossly intact. ABSENT: motor sensory deficit Psychiatric exam: PRESENT: appropriate affect, normal mood. ABSENT: homicidal ideation, suicidal ideation Skin exam: PRESENT: dry, intact, warm. ABSENT: cyanosis, rash Results Laboratory Results: 08/30/19 20:35 08/30/19 20:35 08/30/19 08/30/19 08/30/19 20:35 20:35 20:35 WBC 5.4 RBC 4.50 Hgb 12.1 L Hct 37.3 L MCV 83 MCH 27.0 MCHC 32.5 RDW 14.4 H Plt Count 212 Seg Neutrophils % 59.8 VBG pH 7.40 VBG pCO2 42.9 VBG HCO3 26.2 VBG Base Excess 1.2 Sodium 140.3 Potassium 4.6 Chloride 105 Carbon Dioxide 27 Anion Gap 8 BUN 12 Creatinine 1.27 H Est GFR ( Amer) > 60 Glucose 100 Calcium 9.8 Magnesium 1.9 Total Bilirubin 1.0 AST 27 Alkaline Phosphatase 79 Total Protein 7.4 Albumin 4.3 TSH Free T4 Free T3 pg/mL Urine Color Urine Appearance Urine pH Ur Specific [place] Urine Protein Urine Glucose (UA) Urine Ketones Urine Blood Urine Nitrite Ur Leukocyte Esterase Urine WBC (Auto) Urine RBC (Auto) 08/30/19 08/30/19 08/31/19 20:35 21:30 07:00 WBC RBC Hgb Hct MCV MCH MCHC RDW Plt Count Seg Neutrophils % VBG pH VBG pCO2 VBG HCO3 VBG Base Excess Sodium Potassium Chloride Carbon Dioxide Anion Gap BUN Creatinine Est GFR ( Amer) Glucose Calcium Magnesium Total Bilirubin AST Alkaline Phosphatase Total Protein Albumin TSH 1.08 0.68 Free T4 1.41 Free T3 pg/mL 4.45 Urine Color YELLOW Urine Appearance CLEAR Urine pH 6.0 Ur Specific [place] 1.019 Urine Protein 30 H Urine Glucose (UA) NEGATIVE Urine Ketones TRACE H Urine Blood NEGATIVE Urine Nitrite NEGATIVE Ur Leukocyte Esterase NEGATIVE Urine WBC (Auto) 1 Urine RBC (Auto) 0 08/30/19 08/30/19 08/31/19 20:35 20:35 07:00 Creatine Kinase 231 H 189 H CK-MB (CK-2) 2.49 Troponin I 0.075 NT-Pro-B Natriuret Pep 2160 H 08/31/19 07:00 Creatine Kinase CK-MB (CK-2) 1.10 Troponin I 0.059 NT-Pro-B Natriuret Pep Impressions: Chest X-Ray 08/30/19 20:10 IMPRESSION: Indistinctness of the pulmonary markings could be secondary to pulmonary edema. Interstitial pneumonitis is not excluded. Assessment and Plan - Diagnosis (1) Congestive heart failure (CHF) Qualifiers: Heart failure type: unspecified Heart failure chronicity: acute on chronic Qualified Code(s): I50.9 - Heart failure, unspecified Is this a current diagnosis for this admission?: Yes Plan: Patient will be evaluated with an echocardiogram and a cardiac consultation will be obtained with Dr. Castillo. Serial cardiac enzymes will be obtained. Patient will be started on therapy utilizing metoprolol, lisinopril and Spironolactone. Further evaluation will be based on Dr. Castillo's recommendation. Serial CBCs metabolic profiles will be obtained as will also be serial magnesium levels. 08/31/2019-patient became diaphoretic short of breath this a.m. in the ER. Ech ocardiogram is been ordered. I will give patient 40 mg of IV Lasix, 2 mg IV morphine and-Nitropaste. Will reevaluate. (2) Hypertension Qualifiers: Hypertension type: essential hypertension Qualified Code(s): I10 - Essential (primary) hypertension Is this a current diagnosis for this admission?: Yes Plan: Patient will be treated with medications to control both hypertension and congestive heart failure. Please see problem #1 patient's blood pressure be evaluated frequently throughout his hospital course with vital signs. Serial metabolic profiles will be obtained as part of his evaluation. 08/31/2019-stable at this time continue to follow (3) Proteinuria Qualifiers: Proteinuria type: unspecified Qualified Code(s): R80.9 - Proteinuria, unspecified Is this a current diagnosis for this admission?: Yes Plan: Patient's proteinuria will be followed on an ongoing basis and his post hospital setting. 08/31/2019-most likely secondary to hypertensive disorder. Blood pressure control at this time continue to follow (4) Tobacco use disorder, severe, dependence Is this a current diagnosis for this admission?: Yes Plan: Smoking cessation is advised and counseled briefly at the bedside. A nicotine replacement patch is available for patients use if desired. 08/31/2019-continue to sales counselor on tobacco cessation - Time Time Spent with patient: 15-24 minutes - Inpatient Certification Based on my medical assessment, after consideration of the patient's comorbidities, presenting symptoms, or acuity I expect that the services needed warrant INPATIENT care.: Yes I certify that my determination is in accordance with my understanding of Medicare's requirements for reasonable and necessary INPATIENT services [42 CFR 412.3e].: Yes Medical Necessity: Other - Cardiac work-up
[2019-08-31] MEDS ORDERED: LISINOPRIL 10 MG TABLET PO SCH (10:00)
[2019-08-31] MEDS ORDERED: METOPROLOL SUCCINATE 50 MG TAB.SR.24H PO SCH (10:00)
[2019-08-31] MEDS: LISINOPRIL 10 MG TABLET PO SCH (10:02)
[2019-08-31] MEDS: FAMOTIDINE 20 MG TABLET PO SCH ×2 (10:03→22:09)
[2019-08-31] MEDS: METOPROLOL SUCCINATE 50 MG TAB.SR.24H PO SCH (10:03)
[2019-08-31] MEDS: ASPIRIN 81 MG TABLET, ENT COATED PO SCH (10:03)
[2019-08-31] MEDS: DOCUSATE SODIUM 100 MG CAPSULE PO SCH (10:03)
[2019-08-31] MEDS: ONDANSETRON HCL INJ/PF 4 MG/2 ML SDV IV PRN (10:54)
[2019-08-31] MEDS: ALBUTEROL SULFATE 0.083% NEB 2.5 MG/3 ML AMPUL NEB SCH ×3 (12:13→20:07)
[2019-08-31 14:40] LABS: CREATINE KINASE MB 1.16 ng/mL (<4.55); TROPONIN I 0.051 ng/mL
[2019-08-31 21:01] LABS: CREATINE KINASE MB 1.31 ng/mL (<4.55); TROPONIN I 0.048 ng/mL
--- NOTE | 2019-08-31 22:33 | PDOC CONSULTATION ---
Consultation-Blank Consultation: CARDIOLOGY CONSULTATION by Dr. Clementina Colbert. Patient seen at 8 PM on 08/31/2019. REASON FOR CONSULTATION: Patient with hypertension and dyspnea on exertion to rest shortness of breath. CONSULT REQUESTING PHYSICIAN: Dr[facility] Shun Pearson, [facility] HISTORY PRESENT ILLNESS: The patient states that he has been having shortness of breath the onset of which is June 2019. He came to the emergency room at that time he was found to be hypertensive and was placed on amlodipine. He was taking this medicine regularly but continued to have shortness of breath with dyspnea on exertion. He shortness of breath progressed to shortness of breath at rest. There was also intermittent wheezing and right-sided chest pain/pressure. There is no palpitations or syncope or near syncope. The patient states his shortness of breath is been so bad that he has stopped smoking recently. He also states that he has cough most relieved when he sits up. This is nonproductive and occasionally is productive very small scanty clear sputum. There is no hemoptysis. There is no pleuritic chest pain. There is no fever with fever chills or rigors. The patient has no history of asthma. Since his symptoms worsen he came to the emergency room and was found to be tachycardic and hypertensive and was given metoprolol with his blood pressure responding to it. The patient claims a strong family history of premature sudden in his father. He states his father diagnosed with myocardial infarction and an enlarged heart and heart failure at the age of 32 and at the age of 35. He also states that his grandfather also had congestive heart failure and at an early age. He states both his father and grandfather were unusually tall but no definite diagnosis of Marfan syndrome. He has no history of diabetes mellitus. There is no history of street drug abuse or alcohol abuse. Past Medical History Cardiac Medical History: Reports: Hypertension Denies: Coronary Artery Disease, Myocardial Infarction Pulmonary Medical History: Denies: Asthma, Chronic Obstructive Pulmonary Disease (COPD) EENT Medical History: Denies: Cataracts, Ears - Hearing aids Neurological Medical History: Denies: Hemorrhagic CVA, Ischemic CVA, Seizures Endocrine Medical History: Denies: Diabetes Mellitus Type 1, Diabetes Mellitus Type 2, Hyperthyroidism, Hypothyroidism Renal/ Medical History: Denies: Chronic Kidney Disease, Nephrolithiasis Malignancy Medical History: Reports: None GI Medical History: Denies: Cirrhosis, Hepatitis Musculoskeltal Medical History: Denies: Arthritis, Gout Skin Medical History: Denies: Eczema, Psoriasis Psychiatric Medical History: Reports: Substance Abuse, Tobacco Dependency Denies: Alcohol Dependency Traumatic Medical History: Reports: None Hematology: Denies: Anemia, Bleeding Tendencies Infectious Medical History: Reports: None Past Surgical History Past Surgical History: Reports: None Social History Information Source: Patient Lives with: Family Smoking Status: Current Every Day Smoker Electronic Cigarette use?: No Frequency of Alcohol Use: Occasional Hx Recreational Drug Use: Yes Drugs: Marijuana Hx Prescription Drug Abuse: No - Advance Directive Resuscitation Status: Full Code Surrogate healthcare decision maker:: Yuni Rayo Family History Family History: CAD, DM, Hypertension, Other - Congestive heart failure Parental Family History Reviewed: Yes Children Family History Reviewed: No Sibling(s) Family History Reviewed.: Yes Medication/Allergy Home Medications: Amlodipine Besylate [Norvasc 5 mg Tablet] 5 mg PO DAILY #30 tablet 06/16/19 Allergies/Adverse Reactions: No Known Allergies. Review of Systems Constitutional: ABSENT: chills, fever(s) Eyes: ABSENT: visual disturbances, other - Eye pain Ears: ABSENT: hearing changes, other - Ear pain Nose, Mouth, and Throat: ABSENT: mouth pain, sore throat Cardiovascular: PRESENT: as per HPI, chest pain - Right-sided intermittent, dyspnea on exertion. ABSENT: palpitations Respiratory: PRESENT: as per HPI, cough, dyspnea. ABSENT: sputum Gastrointestinal: ABSENT: abdominal pain, constipation, diarrhea, nausea, vomiting Genitourinary: ABSENT: dysuria, hematuria Musculoskeletal: ABSENT: back pain, joint swelling, muscle weakness Integumentary: ABSENT: pruritus, rash Neurological: ABSENT: confusion, convulsions, focal weakness, memory loss, syncope Psychiatric: ABSENT: anxiety, depression Endocrine: ABSENT: cold intolerance, heat intolerance Hematologic/Lymphatic: ABSENT: easy bleeding, easy bruising Allergic/Immunologic: ABSENT: seasonal rhinorrhea Current Medications Generic Name Dose Route Start Last Admin Trade Name Freq PRN Reason Stop Dose Admin Al Hydrox/Mg Hydrox/Simethicone 30 ml 08/31/19 02:49 Maalox Plus Susp 30 Udcup PO 09/30/19 02:48 Q4HP PRN HEARTBURN Albuterol 2.5 mg 08/31/19 12:00 08/31/19 20:07 Ventolin 0.083% Neb 2.5 Mg/3 Ml Ampul NEB 09/30/19 11:59 2.5 mg RTQ4 YULIYA Administration Aspirin 81 mg 08/31/19 10:00 08/31/19 10:03 Ecotrin 81 Mg Ec Tablet PO 09/30/19 09:59 81 mg DAILY YULIYA Administration Docusate Sodium 100 mg 08/31/19 10:00 08/31/19 10:03 Colace 100 Mg Capsule PO 09/30/19 09:59 100 mg DAILY YULIYA Administration Famotidine 20 mg 08/31/19 10:00 08/31/19 22:09 Pepcid 20 Mg Tablet PO 09/30/19 09:59 20 mg Q12 YULIYA Administration Heparin Sodium (Porcine) 5,000 unit 08/31/19 06:00 08/31/19 22:09 Heparin Inj 5,000 Units/Ml 1 Ml Vial SUBCUT 09/30/19 05:59 5,000 unit Q8 YULIYA Administration Influenza Virus Vaccine Quadrival 0.5 ml 09/01/19 08:00 Flulaval Quad 2019-20 Vac 0.5 Ml Syr IM 09/01/19 08:01 .ONCE ONE Lisinopril 20 mg 08/31/19 10:00 08/31/19 10:02 Prinivil 10 Mg Tablet PO 09/30/19 09:59 20 mg DAILY YULIYA Administration Magnesium Hydroxide 30 ml 08/31/19 02:49 Milk Of Magnesia 30 Ml Udcup PO 09/30/19 02:48 HSP PRN FOR CONSTIPATION Metoprolol Succinate 200 mg 08/31/19 10:00 08/31/19 10:03 Toprol Xl 50 Mg Tab.Sr PO 09/30/19 09:59 200 mg DAILY YULIYA Administration Ondansetron HCl 4 mg 08/31/19 02:49 08/31/19 10:54 Zofran Inj/Pf 4 Mg/2 Ml Sdv IV 09/30/19 02:48 4 mg Q6HP PRN Administration FOR NAUSEA/VOMITING Sodium Chloride 2.5 ml 08/31/19 06:00 08/31/19 14:04 Saline Flush 2.5 Ml Monoject Prefil Syrin IV 09/30/19 05:59 2.5 ml Q8 YULIYA Administration Discontinued Medications Generic Name Dose Route Start Last Admin Trade Name Freq PRN Reason Stop Dose Admin Aspirin 324 mg 08/30/19 20:10 08/30/19 20:29 Aspirin 81 Mg Chewable Tablet PO 08/30/19 20:11 324 mg NOW ONE Administration Furosemide 10 mg 08/30/19 20:51 08/30/19 21:38 Lasix Inj/Pf 20 Mg/2 Ml Sdv IV 08/30/19 20:52 10 mg NOW ONE Administration Furosemide 40 mg 08/31/19 09:29 08/31/19 10:00 Lasix Inj/Pf 40 Mg/4 Ml Sdv IV 08/31/19 09:30 40 mg NOW ONE Administration Lisinopril 10 mg 08/31/19 10:00 Prinivil 10 Mg Tablet PO 09/30/19 09:59 DAILY YULIYA Metoprolol Succinate 100 mg 08/31/19 10:00 Toprol Xl 50 Mg Tab.Sr PO 09/30/19 09:59 DAILY YULIYA Metoprolol Tartrate 100 mg 08/30/19 23:50 08/31/19 00:04 Lopressor 100 Mg Tablet PO 08/30/19 23:51 100 mg NOW ONE Administration Morphine Sulfate 2 mg 08/31/19 09:29 08/31/19 10:06 Morphine 10 Mg/Ml Inj IV 08/31/19 09:30 2 mg NOW ONE Administration Nitroglycerin 0.5 gm 08/31/19 09:29 08/31/19 10:08 Nitrol 2% Ointment 1gm Packet TP 08/31/19 09:30 0.5 gm NOW ONE Administration PHYSICAL EXAMINATION: The patient is well-built and well-nourished. At present in no acute distress. Selected Entries 08/31/19 16:59 Temperature 97.8 F Temperature Oral Source Pulse Rate 94 Respiratory 19 Rate Blood Pressure 131/68 H [Right Upper Arm] Blood Pressure 89 Mean [Right Upper Arm] Blood Pressure Supine Position [Right Upper Arm] O2 Sat by Pulse 98 Oximetry Oxygen Delivery Room Air Method ( includes room air) HEAD: Is atraumatic normocephalic. EYES: Pupils are equal round regular reactive to light accommodation. Extraocular movements are normal. There is no conjunctival pallor. There is no scleral icterus.. Ears: Tympanic membranes are intact. External auditory canals are clear. NOSE: There is no inflammation of the nasal mucous membrane. Mucous membranes of the nose are not inflamed. MOUTH: Mucous membranes of mouth are moist. Tongue is moist. There is no ulcers. There is no bleeding from the gums. THROAT: There is no redness of the oropharynx. There is no exudates. SKIN: There is no skin rashes. There is no petechia or ecchymosis. There is no skin lesions. NECK: Supple. There is no JVD. Carotids are equal there is no bruit there is no lymphadenopathy. There is no goiter. There is no accessory muscle respiration use. TRACHEA is central. LUNGS: There is diminished air entry prolonged expiration. There is a few scattered rhonchi. There is a few bibasilar rales of CHF. On percussion there is hyperresonance. There is no wheezing or dry crackles. HEART: S1-S2 is heard. There is no S3 gallop. There is no S4 gallop. There is systolic murmur in the left sternal border and the apex there is no rub. Abdomen. There is no hepatospleno megaly. Bowel sounds well heard. There is no tender areas masses. There is no rebound guarding or rigidity. EXTREMITIES: Femorals are well felt. There is no femoral bruits. Leg pulses are well felt. There is no pedal edema. There is no DVT or cellulitis. There is no calf tenderness. DIRECT CARE WORKER: The patient is conscious awake alert oriented x3 with no focal deficit. PSYCHIATRIC: The patient judgment insight are intact his affect is normal. Labs- Entire Visit 08/30/19 08/30/19 08/30/19 20:35 20:35 20:35 WBC 5.4 RBC 4.50 Hgb 12.1 L Hct 37.3 L MCV 83 MCH 27.0 MCHC 32.5 RDW 14.4 H Plt Count 212 Lymph % (Auto) 29.4 [place] % (Auto) 9.6 Eos % (Auto) 1.0 Baso % (Auto) 0.2 Absolute Neuts (auto) 3.3 Absolute Lymphs (auto) 1.6 Absolute Monos (auto) 0.5 Absolute Eos (auto) 0.1 Absolute Basos (auto) 0.0 Seg Neutrophils % 59.8 Large Platelets PRESENT Platelet Comment ADEQUATE Anisocytosis SLIGHT VBG pH VBG pCO2 VBG HCO3 VBG Base Excess Sodium 140.3 Potassium 4.6 Chloride 105 Carbon Dioxide 27 Anion Gap 8 BUN 12 Creatinine 1.27 H Est GFR ( Amer) > 60 Est GFR (MDRD) Non-Af > 60 Glucose 100 POC Glucose Calcium 9.8 Magnesium 1.9 Total Bilirubin 1.0 Direct Bilirubin 0.1 Neonat Total Bilirubin Not Reportable Neonat Direct Bilirubin Not Reportable Neonat Indirect Bili Not Reportable AST 27 ALT 20 Alkaline Phosphatase 79 Creatine Kinase 231 H CK-MB (CK-2) 2.49 Troponin I 0.075 NT-Pro-B Natriuret Pep 2160 H Total Protein 7.4 Albumin 4.3 TSH Free T4 Free T3 pg/mL Urine Color Urine Appearance Urine pH Ur Specific [place] Urine Protein Urine Glucose (UA) Urine Ketones Urine Blood Urine Nitrite Urine Bilirubin Urine Urobilinogen Ur Leukocyte Esterase Urine WBC (Auto) Urine RBC (Auto) Urine Mucus (Auto) Urine Ascorbic Acid Urine Opiates Screen Urine Methadone Screen Ur Barbiturates Screen Ur Phencyclidine Scrn Ur Amphetamines Screen U Benzodiazepines Scrn Urine Cocaine Screen U Marijuana (THC) Screen 08/30/19 08/30/19 08/30/19 20:35 20:35 21:30 WBC RBC Hgb Hct MCV MCH MCHC RDW Plt Count Lymph % (Auto) [place] % (Auto) Eos % (Auto) Baso % (Auto) Absolute Neuts (auto) Absolute Lymphs (auto) Absolute Monos (auto) Absolute Eos (auto) Absolute Basos (auto) Seg Neutrophils % Large Platelets Platelet Comment Anisocytosis VBG pH 7.40 VBG pCO2 42.9 VBG HCO3 26.2 VBG Base Excess 1.2 Sodium Potassium Chloride Carbon Dioxide Anion Gap BUN Creatinine Est GFR ( Amer) Est GFR (MDRD) Non-Af Glucose POC Glucose Calcium Magnesium Total Bilirubin Direct Bilirubin Neonat Total Bilirubin Neonat Direct Bilirubin Neonat Indirect Bili AST ALT Alkaline Phosphatase Creatine Kinase CK-MB (CK-2) Troponin I NT-Pro-B Natriuret Pep Total Protein Albumin TSH 1.08 Free T4 Free T3 pg/mL Urine Color YELLOW Urine Appearance CLEAR Urine pH 6.0 Ur Specific [place] 1.019 Urine Protein 30 H Urine Glucose (UA) NEGATIVE Urine Ketones TRACE H Urine Blood NEGATIVE Urine Nitrite NEGATIVE Urine Bilirubin NEGATIVE Urine Urobilinogen NEGATIVE Ur Leukocyte Esterase NEGATIVE Urine WBC (Auto) 1 Urine RBC (Auto) 0 Urine Mucus (Auto) MOD Urine Ascorbic Acid NEGATIVE Urine Opiates Screen Urine Methadone Screen Ur Barbiturates Screen Ur Phencyclidine Scrn Ur Amphetamines Screen U Benzodiazepines Scrn Urine Cocaine Screen U Marijuana (THC) Screen 08/30/19 08/31/19 08/31/19 21:30 00:58 07:00 WBC RBC Hgb Hct MCV MCH MCHC RDW Plt Count Lymph % (Auto) [place] % (Auto) Eos % (Auto) Baso % (Auto) Absolute Neuts (auto) Absolute Lymphs (auto) Absolute Monos (auto) Absolute Eos (auto) Absolute Basos (auto) Seg Neutrophils % Large Platelets Platelet Comment Anisocytosis VBG pH VBG pCO2 VBG HCO3 VBG Base Excess Sodium Potassium Chloride Carbon Dioxide Anion Gap BUN Creatinine Est GFR ( Amer) Est GFR (MDRD) Non-Af Glucose POC Glucose 108 Calcium Magnesium Total Bilirubin Direct Bilirubin Neonat Total Bilirubin Neonat Direct Bilirubin Neonat Indirect Bili AST ALT Alkaline Phosphatase Creatine Kinase CK-MB (CK-2) Troponin I NT-Pro-B Natriuret Pep Total Protein Albumin TSH 0.68 Free T4 1.41 Free T3 pg/mL 4.45 Urine Color Urine Appearance Urine pH Ur Specific [place] Urine Protein Urine Glucose (UA) Urine Ketones Urine Blood Urine Nitrite Urine Bilirubin Urine Urobilinogen Ur Leukocyte Esterase Urine WBC (Auto) Urine RBC (Auto) Urine Mucus (Auto) Urine Ascorbic Acid Urine Opiates Screen NEGATIVE Urine Methadone Screen NEGATIVE Ur Barbiturates Screen NEGATIVE Ur Phencyclidine Scrn NEGATIVE Ur Amphetamines Screen NEGATIVE U Benzodiazepines Scrn NEGATIVE Urine Cocaine Screen NEGATIVE U Marijuana (THC) Screen UNCONFIRMED POSITIVE 08/31/19 08/31/19 08/31/19 07:00 07:00 14:00 WBC RBC Hgb Hct MCV MCH MCHC RDW Plt Count Lymph % (Auto) [place] % (Auto) Eos % (Auto) Baso % (Auto) Absolute Neuts (auto) Absolute Lymphs (auto) Absolute Monos (auto) Absolute Eos (auto) Absolute Basos (auto) Seg Neutrophils % Large Platelets Platelet Comment Anisocytosis VBG pH VBG pCO2 VBG HCO3 VBG Base Excess Sodium Potassium Chloride Carbon Dioxide Anion Gap BUN Creatinine Est GFR ( Amer) Est GFR (MDRD) Non-Af Glucose POC Glucose Calcium Magnesium Total Bilirubin Direct Bilirubin Neonat Total Bilirubin Neonat Direct Bilirubin Neonat Indirect Bili AST ALT Alkaline Phosphatase Creatine Kinase 189 H 147 CK-MB (CK-2) 1.10 Troponin I 0.059 NT-Pro-B Natriuret Pep Total Protein Albumin TSH Free T4 Free T3 pg/mL Urine Color Urine Appearance Urine pH Ur Specific [place] Urine Protein Urine Glucose (UA) Urine Ketones Urine Blood Urine Nitrite Urine Bilirubin Urine Urobilinogen Ur Leukocyte Esterase Urine WBC (Auto) Urine RBC (Auto) Urine Mucus (Auto) Urine Ascorbic Acid Urine Opiates Screen Urine Methadone Screen Ur Barbiturates Screen Ur Phencyclidine Scrn Ur Amphetamines Screen U Benzodiazepines Scrn Urine Cocaine Screen U Marijuana (THC) Screen 08/31/19 08/31/19 08/31/19 14:00 20:14 20:14 WBC RBC Hgb Hct MCV MCH MCHC RDW Plt Count Lymph % (Auto) [place] % (Auto) Eos % (Auto) Baso % (Auto) Absolute Neuts (auto) Absolute Lymphs (auto) Absolute Monos (auto) Absolute Eos (auto) Absolute Basos (auto) Seg Neutrophils % Large Platelets Platelet Comment Anisocytosis VBG pH VBG pCO2 VBG HCO3 VBG Base Excess Sodium Potassium Chloride Carbon Dioxide Anion Gap BUN Creatinine Est GFR ( Amer) Est GFR (MDRD) Non-Af Glucose POC Glucose Calcium Magnesium Total Bilirubin Direct Bilirubin Neonat Total Bilirubin Neonat Direct Bilirubin Neonat Indirect Bili AST ALT Alkaline Phosphatase Creatine Kinase 150 CK-MB (CK-2) 1.16 1.31 Troponin I 0.051 0.048 NT-Pro-B Natriuret Pep Total Protein Albumin TSH Free T4 Free T3 pg/mL Urine Color Urine Appearance Urine pH Ur Specific [place] Urine Protein Urine Glucose (UA) Urine Ketones Urine Blood Urine Nitrite Urine Bilirubin Urine Urobilinogen Ur Leukocyte Esterase Urine WBC (Auto) Urine RBC (Auto) Urine Mucus (Auto) Urine Ascorbic Acid Urine Opiates Screen Urine Methadone Screen Ur Barbiturates Screen Ur Phencyclidine Scrn Ur Amphetamines Screen U Benzodiazepines Scrn Urine Cocaine Screen U Marijuana (THC) Screen Chest X-Ray 08/30/19 20:10 IMPRESSION: Indistinctness of the pulmonary markings could be secondary to pulmonary edema. Interstitial pneumonitis is not excluded. The patient's 2 EKG's shows sinus tachycardia. Left atrial enlargement. Diffuse nonspecific T changes. T inversion cannot exclude ischemia. Probable left ventricular hypertrophy with strain pattern. IMPRESSION/RECOMMENDATION: 1. Shortness of breath which started his dyspnea on exertion to rest shortness of breath with wheezing intermittently. This is secondary to a combination of congestive heart failure systolic versus diastolic and COPD with acute exa cerbation, possible interstitial pneumonitis. 2. Congestive heart failure: Systolic versus diastolic. Strongly recommend getting an echocardiogram of the. At present I agree with KRISHAN inhibitors, beta- zack, and Lasix. Further treatment depends on whether the congestive heart failure is systolic or diastolic in etiology. 3. COPD with acute exacerbation. Recommend bronchodilators and possibly antibiotics. 4. History of hypertension: At present well controlled. 5. History of tobacco abuse: Patient counseled to continue to refrain from smoking which is quit recently. X. Multiple CAD risk factors and history of sudden in the family: The patient would require a 30-day event monitor and echocardiographic. Later would recommend that the patient have a exercise or IV Lexiscan cardiac stress test. Medications reviewed. Echocardiogram ordered. Medication regimen and management plan discussed with attending physician on the case. 60 minutes spent on this patient with more than 50% of time spent in direct patient care medical decision making is of high complexity. Will follow.
[2019-09-01] MEDS: ALBUTEROL SULFATE 0.083% NEB 2.5 MG/3 ML AMPUL NEB SCH ×6 (00:57→20:15)
[2019-09-01 04:50] LABS: CHOLESTEROL 174.26 mg/dL (0-200); TRIGLYCERIDES 219 mg/dL (<150)
[2019-09-01 05:01] LABS: DIRECT LDL 117 mg/dL (<100)
[2019-09-01 05:03] LABS: VLDL CHOLESTEROL 43.8 mg/dL (10-31)
[2019-09-01] MEDS: HEPARIN SOD (PORCINE) 5,000 UNIT/ML 1 ML VIAL SUBCUT SCH ×3 (06:26→22:32)
[2019-09-01] MEDS ORDERED: INFLUENZA QUAD (6MOS+) 2019-20 VAC 0.5 ML SYR IM ONE (08:00)
--- NOTE | 2019-09-01 09:19 | PDOC PROGRESS REPORT ---
Subjective Progress Note for:: 09/01/19 Subjective:: 08/21/2019-shortness of breath, diaphoresis 09/01/2019-no complaints this a.m. Reason For Visit: CONGESTIVE HEART FAILURE Physical Exam Vital Signs: Temp Pulse Resp BP Pulse Ox 98.0 F 92 15 117/70 99 08/31/19 23:53 09/01/19 07:00 09/01/19 05:00 08/31/19 23:53 09/01/19 05:00 Intake & Output 08/31/19 09/01/19 09/02/19 06:59 06:59 06:59 Intake Total 360 Output Total 500 Balance -500 360 Weight 107.4 kg General appearance: PRESENT: no acute distress, well-developed, well-nourished Head exam: PRESENT: atraumatic, normocephalic Eye exam: PRESENT: conjunctiva pink, EOMI, PERRLA. ABSENT: scleral icterus Ear exam: PRESENT: normal external ear exam Mouth exam: PRESENT: moist, tongue midline Neck exam: ABSENT: carotid bruit, JVD, lymphadenopathy, thyromegaly Respiratory exam: PRESENT: clear to auscultation lennie. ABSENT: rales, rhonchi, wheezes Cardiovascular exam: PRESENT: RRR. ABSENT: diastolic murmur, rubs, systolic murmur Pulses: PRESENT: normal dorsalis pedis pul Vascular exam: PRESENT: normal capillary refill GI/Abdominal exam: PRESENT: normal bowel sounds, soft. ABSENT: distended, guarding, mass, organolmegaly, rebound, tenderness Rectal exam: PRESENT: deferred Extremities exam: PRESENT: full ROM. ABSENT: calf tenderness, clubbing, pedal edema Neurological exam: PRESENT: alert, awake, oriented to person, oriented to place, oriented to time, oriented to situation, CN II-XII grossly intact. ABSENT: motor sensory deficit Psychiatric exam: PRESENT: appropriate affect, normal mood. ABSENT: homicidal ideation, suicidal ideation Skin exam: PRESENT: dry, intact, warm. ABSENT: cyanosis, rash Results Laboratory Results: 08/30/19 20:35 08/30/19 20:35 09/01/19 03:43 Magnesium 2.0 Triglycerides 219 H Cholesterol 174.26 LDL Cholesterol Direct 117 H VLDL Cholesterol 43.8 H HDL Cholesterol 20 L 08/30/19 08/30/19 08/31/19 20:35 20:35 07:00 Creatine Kinase 231 H 189 H CK-MB (CK-2) 2.49 Troponin I 0.075 NT-Pro-B Natriuret Pep 2160 H 08/31/19 08/31/19 08/31/19 07:00 14:00 14:00 Creatine Kinase 147 CK-MB (CK-2) 1.10 1.16 Troponin I 0.059 0.051 NT-Pro-B Natriuret Pep 08/31/19 08/31/19 20:14 20:14 Creatine Kinase 150 CK-MB (CK-2) 1.31 Troponin I 0.048 NT-Pro-B Natriuret Pep Impressions: Chest X-Ray 08/30/19 20:10 IMPRESSION: Indistinctness of the pulmonary markings could be secondary to pulmonary edema. Interstitial pneumonitis is not excluded. Assessment and Plan - Diagnosis (1) Congestive heart failure (CHF) Qualifiers: Heart failure type: unspecified Heart failure chronicity: acute on chronic Qualified Code(s): I50.9 - Heart failure, unspecified Is this a current diagnosis for this admission?: Yes Plan: Patient will be evaluated with an echocardiogram and a cardiac consultation will be obtained with Dr. Castillo. Serial cardiac enzymes will be obtained. Patient will be started on therapy utilizing metoprolol, lisinopril and Spironolactone. Further evaluation will be based on Dr. Castillo's recommendation. Serial CBCs metabolic profiles will be obtained as will also be serial magnesium levels. 08/31/2019-patient became diaphoretic short of breath this a.m. in the ER. Echocardiogram is been ordered. I will give patient 40 mg of IV Lasix, 2 mg IV morphine and-Nitropaste. Will reevaluate. 09/01/2019-improved. Awaiting echocardiogram. Patient was told by Dr. Steph escobar we will continue current therapy until echocardiogram returns. (2) Hypertension Qualifiers: Hypertension type: essential hypertension Qualified Code(s): I10 - Essential (primary) hypertension Is this a current diagnosis for this admission?: Yes Plan: Patient will be treated with medications to control both hypertension and congestive heart failure. Please see problem #1 patient's blood pressure be evaluated frequently throughout his hospital course with vital signs. Serial metabolic profiles will be obtained as part of his evaluation. 08/31/2019-stable at this time continue to follow 09/01/2019-stable continue to follow (3) Proteinuria Qualifiers: Proteinuria type: unspecified Qualified Code(s): R80.9 - Proteinuria, unspecified Is this a current diagnosis for this admission?: Yes Plan: Patient's proteinuria will be followed on an ongoing basis and his post hospital setting. 08/31/2019-most likely secondary to hypertensive disorder. Blood pressure control at this time continue to follow 09/01/2019-continued aggressively treat hypertension (4) Tobacco use disorder, severe, dependence Is this a current diagnosis for this admission?: Yes Plan: Smoking cessation is advised and counseled briefly at the bedside. A nicotine replacement patch is available for patients use if desired. 08/31/2019-continue to university counselor on tobacco cessation 09/01/2019-continue tobacco cessation education - Time Time Spent with patient: 15-24 minutes - Inpatient Certification Based on my medical assessment, after consideration of the patient's comorbidities, presenting symptoms, or acuity I expect that the services needed warrant INPATIENT care.: Yes I certify that my determination is in accordance with my understanding of Medicare's requirements for reasonable and necessary INPATIENT services [42 CFR 412.3e].: Yes Medical Necessity: Other - Echocardiogram, diuresis
[2019-09-01] MEDS: DOCUSATE SODIUM 100 MG CAPSULE PO SCH (09:57)
[2019-09-01] MEDS: LISINOPRIL 10 MG TABLET PO SCH (09:58)
[2019-09-01] MEDS: FAMOTIDINE 20 MG TABLET PO SCH ×2 (09:58→22:31)
[2019-09-01] MEDS: ASPIRIN 81 MG TABLET, ENT COATED PO SCH (09:58)
[2019-09-01] MEDS: METOPROLOL SUCCINATE 50 MG TAB.SR.24H PO SCH (09:58)
[2019-09-01] MEDS: FUROSEMIDE 20 MG TABLET PO SCH (11:22)
--- NOTE | 2019-09-01 22:11 | Progress Note ---
Provider Note Provider Note: CARDIOLOGY PROGRESS NOTE by Dr. Clementina Castillo on 09/01/2019. SUBJECTIVE: The patient continues to have shortness of breath but no PND orthopnea or leg edema. He has shortness of breath and walking back from the bathroom. There is no arrhythmia seen. The patient has no palpitations dizziness or syncope. He has some right-sided chest discomfort which is very vague about. There is no clear-cut anginal symptoms. PHYSICAL EXAMINATION: The patient is well-built and well-nourished. At present in no acute distress. Selected Entries 09/01/19 07:46 Temperature 98.2 F Temperature Oral Source Pulse Rate 101 H Respiratory 21 H Rate Blood Pressure 131/82 H Blood Pressure 98 Mean BP Location Right Arm BP Position Supine O2 Sat by Pulse 100 Oximetry Oxygen Delivery Room Air Method HEAD: Is atraumatic normocephalic. EYES: Pupils are equal round regular re active to light accommodation. Extraocular movements are normal. There is no conjunctival pallor. There is no scleral icterus.. Ears: Tympanic membranes are intact. External auditory canals are clear. NOSE: There is no inflammation of the nasal mucous membrane. Mucous membranes of the nose are not inflamed. MOUTH: Mucous membranes of mouth are moist. Tongue is moist. There is no ulcers. There is no bleeding from the gums. THROAT: There is no redness of the oropharynx. There is no exudates. SKIN: There is no skin rashes. There is no petechia or ecchymosis. There is no skin lesions. NECK: Supple. There is no JVD. Carotids are equal there is no bruit there is no lymphadenopathy. There is no goiter. There is no accessory muscle respiration use. TRACHEA is central. LUNGS: There is diminished air entry prolonged expiration. There is a few scattered rhonchi. There is a few bibasilar rales of CHF. On percussion there is hyperresonance. There is no wheezing or dry crackles. HEART: S1-S2 is heard. There is no S3 gallop. There is no S4 gallop. There is systolic murmur in the left sternal border and the apex there is no rub. Abdomen. There is no hepatospleno megaly. Bowel sounds well heard. There is no tender areas masses. There is no rebound guarding or rigidity. EXTREMITIES: Femorals are well felt. There is no femoral bruits. Leg pulses are well felt. There is no pedal edema. There is no DVT or cellulitis. There is no calf tenderness. 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 PSYCHIATRIC: The patient judgment insight are intact his affect is normal. Labs- All tests 24 hr 09/01/19 03:43 Magnesium 2.0 Triglycerides 219 H Cholesterol 174.26 LDL Cholesterol Direct 117 H VLDL Cholesterol 43.8 H HDL Cholesterol 20 L Chest X-Ray 08/30/19 20:10 IMPRESSION: Indistinctness of the pulmonary markings could be secondary to pulmonary edema. Interstitial pneumonitis is not excluded. IMPRESSION/RECOMMENDATION: 1. Shortness of breath which started his dyspnea on exertion to rest shortness of breath with wheezing intermittently. This is secondary to a combination of congestive heart failure systolic versus diastolic and COPD with acute exacerbation, possible interstitial pneumonitis. 2. Congestive heart failure: Systolic versus diastolic. Strongly recommend getting an echocardiogram of the. At present I agree with KRISHAN inhibitors, beta- zack, and Lasix. Further treatment depends on whether the congestive heart failure is systolic or diastolic in etiology. The echocardiogram will be done later today. We will reviewed when done. 3. COPD with acute exacerbation. Recommend bronchodilators and possibly antibiotics. 4. History of hypertension: At present well controlled. 5. History of tobacco abuse: Patient counseled to continue to refrain from smoking which is quit recently. 6. Multiple CAD risk factors and history of sudden in the family: The patient would require a 30-day event monitor and echocardiographic. Later would recommend that the patient have a exercise or IV Lexiscan cardiac stress test. Medications reviewed. Medication regimen and management plan discussed with attending physician on the case. Medical decision making is still of high complexity. 40 minutes spent as patient with more than 50% of time spent in direct patient care. Will follow.
[2019-09-01] MEDS: ATORVASTATIN CALCIUM 10 MG TABLET PO SCH (22:31)
[2019-09-02] MEDS: ALBUTEROL SULFATE 0.083% NEB 2.5 MG/3 ML AMPUL NEB SCH ×7 (01:52→16:06)
[2019-09-02] MEDS: HEPARIN SOD (PORCINE) 5,000 UNIT/ML 1 ML VIAL SUBCUT SCH ×3 (06:38→21:50)
[2019-09-02 08:11] LABS: ANION GAP 13 (5-19); BLOOD UREA NITROGEN 21 mg/dL (7-20); CALCIUM 9.5 mg/dL (8.4-10.2); CARBON DIOXIDE 22 mmol/L (22-30); CHLORIDE 105 mmol/L (98-107); GLUCOSE 97 mg/dL (75-110); POTASSIUM 4.4 mmol/L (3.6-5.0)
--- NOTE | 2019-09-02 09:09 | PDOC PROGRESS REPORT ---
Subjective Progress Note for:: 09/02/19 Subjective:: 08/21/2019-shortness of breath, diaphoresis 09/01/2019-no complaints this a.m. 09/02/2019-no complaints this a.m. Reason For Visit: CONGESTIVE HEART FAILURE Physical Exam Vital Signs: Temp Pulse Resp BP Pulse Ox 98.2 F 105 H 20 140/92 H 98 09/02/19 08:18 09/02/19 08:38 09/02/19 08:38 09/02/19 08:18 09/02/19 08:38 Intake & Output 09/01/19 09/02/19 09/03/19 06:59 06:59 06:59 Intake Total 360 915 Balance 360 915 Weight 106.2 kg General appearance: PRESENT: no acute distress, well-developed, well-nourished Head exam: PRESENT: atraumatic, normocephalic Eye exam: PRESENT: conjunctiva pink, EOMI, PERRLA. ABSENT: scleral icterus Ear exam: PRESENT: normal external ear exam Mouth exam: PRESENT: moist, tongue midline Neck exam: ABSENT: carotid bruit, JVD, lymphadenopathy, thyromegaly Respiratory exam: PRESENT: clear to auscultation lennie. ABSENT: rales, rhonchi, wheezes Cardiovascular exam: PRESENT: RRR. ABSENT: diastolic murmur, rubs, systolic murmur Pulses: PRESENT: normal dorsalis pedis pul Vascular exam: PRESENT: normal capillary refill GI/Abdominal exam: PRESENT: normal bowel sounds, soft. ABSENT: distended, guarding, mass, organolmegaly, rebound, tenderness Rectal exam: PRESENT: deferred Extremities exam: PRESENT: full ROM. ABSENT: calf tenderness, clubbing, pedal edema Neurological exam: PRESENT: alert, awake, oriented to person, oriented to place, oriented to time, oriented to situation, CN II-XII grossly intact. ABSENT: motor sensory deficit Psychiatric exam: PRESENT: appropriate affect, normal mood. ABSENT: homicidal ideation, suicidal ideation Skin exam: PRESENT: dry, intact, warm. ABSENT: cyanosis, rash Results Laboratory Results: 08/30/19 20:35 09/02/19 06:56 09/02/19 06:56 Sodium 140.2 Potassium 4.4 Chloride 105 Carbon Dioxide 22 Anion Gap 13 BUN 21 H Creatinine 1.35 H Est GFR ( Amer) > 60 Glucose 97 Calcium 9.5 08/30/19 08/30/19 08/31/19 20:35 20:35 07:00 Creatine Kinase 231 H 189 H CK-MB (CK-2) 2.49 Troponin I 0.075 NT-Pro-B Natriuret Pep 2160 H 08/31/19 08/31/19 08/31/19 07:00 14:00 14:00 Creatine Kinase 147 CK-MB (CK-2) 1.10 1.16 Troponin I 0.059 0.051 NT-Pro-B Natriuret Pep 08/31/19 08/31/19 20:14 20:14 Creatine Kinase 150 CK-MB (CK-2) 1.31 Troponin I 0.048 NT-Pro-B Natriuret Pep Impressions: Chest X-Ray 08/30/19 20:10 IMPRESSION: Indistinctness of the pulmonary markings could be secondary to pulmonary edema. Interstitial pneumonitis is not excluded. Assessment and Plan - Diagnosis (1) Congestive heart failure (CHF) Qualifiers: Heart failure type: unspecified Heart failure chronicity: acute on chronic Qualified Code(s): I50.9 - Heart failure, unspecified Is this a current diagnosis for this admission?: Yes Plan: Patient will be evaluated with an echocardiogram and a cardiac consultation will be obtained with Dr. Castillo. Serial cardiac enzymes will be obtained. Patient will be started on therapy utilizing metoprolol, lisinopril and Spironolactone. Further evaluation will be based on Dr. Castillo's recommendation. Serial CBCs metabolic profiles will be obtained as will also be serial magnesium levels. 08/31/2019-patient became diaphoretic short of breath this a.m. in the ER. Echocardiogram is been ordered. I will give patient 40 mg of IV Lasix, 2 mg IV morphine and-Nitropaste. Will reevaluate. 09/01/2019-improved. Awaiting echocardiogram. Patient was told by Dr. Castillo we will continue current therapy until echocardiogram returns. 09/02/2019-improved. Echocardiogram pending. Per Dr. Castillo patient will require either a cardiac stress test or Lexiscan. May have to be done on outpatient basis. Will follow (2) Hypertension Qualifiers: Hypertension type: essential hypertension Qualified Code(s): I10 - Essential (primary) hypertension Is this a current diagnosis for this admission?: Yes Plan: Patient will be treated with medications to control both hypertension and congestive heart failure. Please see problem #1 patient's blood pressure be evaluated frequently throughout his hospital course with vital signs. Serial metabolic profiles will be obtained as part of his evaluation. 08/31/2019-stable at this time continue to follow 09/01/2019-stable continue to follow 2018-stable (3) Proteinuria Qualifiers: Proteinuria type: unspecified Qualified Code(s): R80.9 - Proteinuria, uns pecified Is this a current diagnosis for this admission?: Yes Plan: Patient's proteinuria will be followed on an ongoing basis and his post hospital setting. 08/31/2019-most likely secondary to hypertensive disorder. Blood pressure control at this time continue to follow 09/01/2019-continued aggressively treat hypertension 09/02/2019-stable (4) Tobacco use disorder, severe, dependence Is this a current diagnosis for this admission?: Yes Plan: Smoking cessation is advised and counseled briefly at the bedside. A nicotine replacement patch is available for patients use if desired. 08/31/2019-continue to prenatal genetic counselor on tobacco cessation 09/01/2019-continue tobacco cessation education 09/02/2019-tobacco cessation education - Time Time Spent with patient: 15-24 minutes - Inpatient Certification Based on my medical assessment, after consideration of the patient's comorbidities, presenting symptoms, or acuity I expect that the services needed warrant INPATIENT care.: Yes I certify that my determination is in accordance with my understanding of Medicare's requirements for reasonable and necessary INPATIENT services [42 CFR 412.3e].: Yes Medical Necessity: Need Close Monitoring Due to Risk of Patient Decompensation, Need For Continuous Telemetry Monitoring
[2019-09-02] MEDS: DOCUSATE SODIUM 100 MG CAPSULE PO SCH (10:02)
[2019-09-02] MEDS: LISINOPRIL 10 MG TABLET PO SCH (10:02)
[2019-09-02] MEDS: METOPROLOL SUCCINATE 50 MG TAB.SR.24H PO SCH (10:02)
[2019-09-02] MEDS: ASPIRIN 81 MG TABLET, ENT COATED PO SCH (10:03)
[2019-09-02] MEDS: FAMOTIDINE 20 MG TABLET PO SCH ×2 (10:03→21:50)
[2019-09-02] MEDS: FUROSEMIDE 20 MG TABLET PO SCH (10:03)
--- NOTE | 2019-09-02 12:46 | XCELERA REPORT ---
[address] [address] Transthoracic Echocardiogram Report Name: ALISSA SAUNDERS Age: 34 yrs Gender: Male : 1985 Patient Status: Inpatient Patient Location: [address] [place] [address] Study Date: 09/01/2019 04:27 PM Height: 74 in Weight: 236 lb BSA: 2.3 m2 Procedure: A two-dimensional transthoracic echocardiogram with color flow and Doppler was performed. Study Quality: Fair. Reason For Study: CHF and IHSS History: CHF and IHSS. Ordering Physician: CLEMENTINA MOONEY Performed By: Heather Connelly Interpretation Summary No evidence of IHSS (HOCM). The left ventricle is moderately dilated. There is normal left ventricular wall thickness. LV EF is 15% Left ventricular systolic function is severely reduced. LV diastolic function not assessed. There is severe global hypokinesis of the left ventricle. There is no thrombus. Cannot assess ASD,VSD , or PFO. The right ventricle is borderline dilated. The right ventricle is not well visualized secondary to technical limitations The right atrium is borderline dilated. The left atrium is mildly dilated. There is no evidence of mitral valve prolapse. There is no vegetation seen on the mitral valve. There is no mitral valve stenosis. There is a moderate to severe amount of mitral regurgitation There is no aortic valvular vegetation. There is no aortic valve stenosis There is no LVOT obstruction. There is a trace amount of aortic regurgitation There is no tricuspid stenosis. There is a moderate amount of tricuspid regurgitation There is moderate pulmonary hypertension by echo RVSP is 49 mm of Hg , with RA mean of at least 30 mm of HG , but there is undersampling of thre eccentric TR jet , and hence underestimating the RVSP. There is no pulmonic valvular stenosis. There is a trace amount of pulmonic regurgitation The aortic root is normal size. The inferior vena cava appeared dilated and did not change with respiration (RAP > 20 mmHg) There is no pericardial effusion. No evidence of IHSS (HOCM). MMode/2D Measurements & Calculations RVDd: 2.4 cm LVIDd: 6.7 cm FS: 7.9 % Ao root diam: 2.8 cm IVSd: 0.99 cm LVIDs: 6.2 cm EDV(Teich): LVPWd: 1.0 cm 234.7 ml Ao root area: ESV(Teich): 6.0 cm2 194.6 ml LA dimension: EF(Teich): 17.1 % 4.2 cm LVLd ap4: 9.0 cm SV(MOD-sp4): EDV(MOD-sp4): 63.0 ml 189.0 ml LVLs ap4: 8.5 cm ESV(MOD-sp4): 126.0 ml EF(MOD-sp4): 33.3 % Doppler Measurements & Calculations MV E max antonette: MV P1/2t max antonette: Ao V2 max: LV V1 max P.4 cm/sec 98.9 cm/sec 72.7 cm/sec 1.4 mmHg MV A max antonette: MV P1/2t: 37.5 msec Ao max P.1 mmHgLV V1 max: 45.4 cm/sec MVA(P1/2t): 5.9 cm2 60.0 cm/sec MV E/A: 1.9 MV dec slope: 772.6 cm/sec2 MV dec time: 0.14 sec MR max antonette: PA V2 max: PI end-d antonette: TR max antonette: 446.6 cm/sec 54.3 cm/sec 178.4 cm/sec 269.5 cm/sec MR max PG: PA max P.2 mmHg TR max P.8 mmHg 29.1 mmHg MV P1/2t-pr_phl: 37.5 msec Left Ventricle The left ventricle is moderately dilated. There is normal left ventricular wall thickness. LV EF is 15%. Left ventricular systolic function is severely reduced. LV diastolic function not assessed. There is severe global hypokinesis of the left ventricle. There is no thrombus. Cannot assess ASD,VSD , or PFO. Right Ventricle The right ventricle is borderline dilated. The right ventricle is not well visualized secondary to technical limitations. Atria The right atrium is borderline dilated. The left atrium is mildly dilated. Mitral Valve There is no evidence of mitral valve prolapse. There is no vegetation seen on the mitral valve. There is no mitral valve stenosis. There is a moderate to severe amount of mitral regurgitation. Aortic Valve There is no aortic valvular vegetation. There is no aortic valve stenosis. There is no LVOT obstruction. There is a trace amount of aortic regurgitation. Tricuspid Valve There is no tricuspid stenosis. There is a moderate amount of tricuspid regurgitation. There is moderate pulmonary hypertension by echo. RVSP is 49 mm of Hg , with RA mean of at least 30 mm of HG , but there is undersampling of thre eccentric TR jet , and hence underestimating the RVSP. Pulmonic Valve There is no pulmonic valvular stenosis. There is a trace amount of pulmonic regurgitation. Great Vessels The aortic root is normal size. The inferior vena cava appeared dilated and did not change with respiration (RAP > 20 mmHg). Effusions There is no pericardial effusion. : CLEMENTINA MOONEY Lakshmi
[2019-09-02] MEDS ORDERED: LEVALBUTEROL HCL NEB 1.25 MG/3 ML AMPUL NEB PRN (17:25)
[2019-09-02] MEDS ORDERED: HYDRALAZINE HCL INJ/PF 20 MG/1 ML SDV IV PRN (21:01)
[2019-09-02] MEDS ORDERED: MORPHINE SULFATE 10 MG/ML INJ IV PRN ×4 (21:01→21:07)
[2019-09-02] MEDS ORDERED: NITROGLYCERIN 0.4 MG/TAB 25 TAB/BOTTLE SL PRN (21:01)
[2019-09-02] MEDS ORDERED: LEVALBUTEROL HCL NEB 0.63 MG/3 ML AMPUL NEB PRN (21:18)
--- NOTE | 2019-09-02 21:21 | Progress Note ---
Provider Note Provider Note: CARDIOLOGY PROGRESS NOTE by Dr. Clementina Castillo on 09/02/2019. SUBJECTIVE: The patient continues to have dyspnea on exertion. He denies any chest pain discomfort. There is no PND orthopnea. There is no palpitations. There is no arrhythmia seen on the monitor. Note that the patient's echocardiogram shows a dilated LV with severely reduced LV ejection fraction of 15%. There is also significant mitral regurgitation and tricuspid regurgitation. There is mild to moderate pulmonary hypertension. The patient will need a comprehensive cardiac work-up, including cardiac catheterization to make sure the patient has no obstructive coronary artery disease. Dementia patient may also need a LifeVest. Subsequently if coronaries are normal and there is no reversible causes for the patient's cardiomyopathy, the patient may need to be referred to a transplant center for consideration of transplantation of the heart. This is been discussed with the patient in detail. Will discuss with [facility] tomorrow and to have the patient transferred to [facility] for further cardiac work-up including cardiac catheterization. PHYSICAL EXAMINATION: The patient is well-built and well-nourished. In no acute distress. Selected Entries 09/02/19 09/02/19 12:22 14:00 Temperature 97.5 F Temperature Oral Source Pulse Rate 96 Respiratory 22 H Rate Blood Pressure 138/98 H Blood Pressure 111 Mean BP Location Right Arm BP Position Supine O2 Sat by Pulse 100 Oximetry Oxygen Delivery Room Air Method HEAD: Is atraumatic normocephalic. EYES: Pupils are equal round regular reactive to light accommodation. Extraocular movements are normal. There is no conjunctival pallor. There is no scleral icterus.. Ears: Tympanic membranes are intact. External auditory canals are clear. NOSE: There is no inflammation of the nasal mucous membrane. Mucous membranes of the nose are not inflamed. MOUTH: Mucous membranes of mouth are moist. Tongue is moist. There is no ulcers. There is no bleeding from the gums. THROAT: There is no redness of the oropharynx. There is no exudates. SKIN: There is no skin rashes. There is no petechia or ecchymosis. There is no skin lesions. NECK: Supple. There is no JVD. Carotids are equal there is no bruit there is no lymphadenopathy. There is no goiter. There is no accessory muscle respiration use. TRACHEA is central. LUNGS: There is diminished air entry prolonged expiration. There is a few scattered rhonchi. There is a few bibasilar rales of CHF. On percussion there is hyperresonance. There is no wheezing or dry crackles. HEART: S1-S2 is heard. There is no S3 gallop. There is no S4 gallop. There is systolic murmur in the left sternal border and the apex there is no rub. Abdomen. There is no hepatospleno megaly. Bowel sounds well heard. There is no tender areas masses. There is no rebound guarding or rigidity. EXTREMITIES: Femorals are well felt. There is no femoral bruits. Leg pulses are well felt. There is no pedal edema. There is no DVT or cellulitis. There is no calf tenderness. 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 PSYCHIATRIC: The patient judgment insight are intact his affect is normal. Labs- All tests 24 hr 09/02/19 06:56 Sodium 140.2 Potassium 4.4 Chloride 105 Carbon Dioxide 22 Anion Gap 13 BUN 21 H Creatinine 1.35 H Est GFR ( Amer) > 60 Est GFR (MDRD) Non-Af > 60 Glucose 97 Calcium 9.5 Chest X-Ray 08/30/19 20:10 IMPRESSION: Indistinctness of the pulmonary markings could be secondary to pulmonary edema. Interstitial pneumonitis is not excluded. IMPRESSION/RECOMMENDATION: 1. Shortness of breath which started his dyspnea on exertion to rest shortness of breath with wheezing intermittently. This is secondary to a combination of congestive heart failure systolic versus diastolic and COPD with acute exacerbation, possible interstitial pneumonitis. 2. Congestive heart failure: Systolic versus diastolic. Strongly recommend getting an echocardiogram of the. At present I agree with KRISHAN inhibitors, beta- zack, and Lasix. Further treatment depends on whether the congestive heart failure is systolic or diastolic in etiology. The echocardiogram SINUSShows severely reduced LV ejection fraction. As mentioned earlier will discuss with [facility] cardiology and get the patient transferred for initial work-up which includes cardiac catheterization. The patient is agreeable also note that the patient was in the [place] war, and hence need to consider any exposure to toxins, which can explain the patient's cardiomyopathy. Hence the patient needs to be in a tertiary care center. 3. COPD with acute exacerbation. Recommend bronchodilators and possibly antibiotics. 4. History of hypertension: At present well controlled. 5. History of tobacco abuse: Patient counseled to continue to refrain from smoking which is quit recently. 6. Multiple CAD risk factors and history of sudden in the family: The patient would require a 30-day event monitor and echocardiographic. Later would recommend that the patient have a exercise or IV Lexiscan cardiac stress test. Medications reviewed. Medication regimen and management plan discussed with attending physician on the case. Medical decision making is still of high complexity. 40 minutes spent as patient with more than 50% of time spent in direct patient care. Echo findings discussed with the patient in detail.
--- NOTE | 2019-09-02 21:48 | RADIOLOGY REPORT (SQ) ---
EXAM DESCRIPTION: XR CHEST 1 VIEW COMPLETED DATE/TME: 09/02/2019 00:00 CLINICAL HISTORY: 34 years, Male, Chest pain COMPARISON: EXAM DESCRIPTION: CLINICAL HISTORY: Chest pain COMPARISON: 08/30/2019. FINDINGS: Single view of the chest is submitted. Aeration of both lungs has improved significantly. Cardiac silhouette is moderately enlarged. There is poorly defined residual consolidation/edema in the left lung. The right lung is clear. IMPRESSION: Improving aeration bilaterally. NUMBER OF VIEWS: TECHNIQUE: LIMITATIONS: None. FINDINGS: IMPRESSION: copyright 2010 [employer]- All Rights Reserved
[2019-09-02] MEDS: ONDANSETRON HCL INJ/PF 4 MG/2 ML SDV IV PRN (21:49)
[2019-09-02] MEDS: ATORVASTATIN CALCIUM 10 MG TABLET PO SCH (21:50)
[2019-09-02] MEDS ORDERED: LABETALOL HCL INJ 20 MG/4 ML DISP.SYRIN IV PRN (21:58)
--- NOTE | 2019-09-02 22:08 | Progress Note ---
Provider Note Provider Note: Critical care note: 09/02/2019 Critical care start time: 8:58 PM Critical care issue: Chest pain I was called to see the patient for evaluation regarding chest pain which developed suddenly and was accompanied by dyspnea and a feeling of flushing warmth with mild diaphoresis. The patient describes his symptoms more as being hard to breathe than as actual chest pain and his vague chest discomfort was generalized and did not radiate. He felt that his dyspnea had been well treated with the albuterol nebulizer treatments he was getting earlier but the breathing treatments were discontinued by his provider. The patient was given a low-dose Xopenex nebulizer therapy treatment with good resolution of his symptoms. On exam his chest showed considerably reduced rales with only minimal fine rales at the bases. Heart showed a regular rate and rhythm without murmurs clicks gallops or rubs. He was alert and oriented x4. Extremities revealed no clubbing, cyanosis or edema. Abdomen soft with positive bowel sounds and no tenderness to palpation. A 12-lead EKG, portable chest x-ray and serial cardiac enzymes were obtained. The patient was given hydralazine 20 mg IV every 4 hours as needed systolic blood pressure greater than 160 or diastolic blood pressure greater than 100. Additionally, after discussion with the patient and his nurse, as the patient had complained that he felt the IV hydralazine caused his flushing warmth sensation; he was given the option of using labetalol 20 mg IV every 10 minutes on an as-needed basis for the same blood pressure parameters. His initial EKG showed no evidence of acute myocardial ischemia or myocardial injury, however his left ventricular hypertrophy with repolarization changes is again noted. Chest x-ray showed improvement in the pulmonary vascular congestion as compared to his previous film, his cardiomegaly is unchanged. The initial set of cardiac enzymes, for this episode of chest pain, are pending at the time of this dictation, but will be assessed when they become available. Critical care end time: 10:07 PM Total critical care time: 19 minutes
[2019-09-02 22:31] LABS: CREATINE KINASE MB 1.06 ng/mL (<4.55); TROPONIN I 0.032 ng/mL
--- NOTE | 2019-09-03 00:21 | EKG REPORT ---
SEVERITY:- ABNORMAL ECG - SINUS RHYTHM PROBABLE LEFT ATRIAL ABNORMALITY PROBABLE LEFT VENTRICULAR HYPERTROPHY ABNORMAL T, CONSIDER ISCHEMIA, LATERAL LEADS VS LVH : Confirmed by: Sheryl Edwards 03-Sep-2019 00:20:03
[2019-09-03 04:30] LABS: ANION GAP 14 (5-19); BLOOD UREA NITROGEN 20 mg/dL (7-20); CALCIUM 9.4 mg/dL (8.4-10.2); CARBON DIOXIDE 22 mmol/L (22-30); CHLORIDE 107 mmol/L (98-107); GLUCOSE 84 mg/dL (75-110); POTASSIUM 4.1 mmol/L (3.6-5.0)
[2019-09-03 04:42] LABS: CREATINE KINASE MB 0.86 ng/mL (<4.55); TROPONIN I 0.034 ng/mL
[2019-09-03] MEDS: HEPARIN SOD (PORCINE) 5,000 UNIT/ML 1 ML VIAL SUBCUT SCH ×2 (07:06→15:00)
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
[2019-09-03] MEDS: ASPIRIN 81 MG TABLET, ENT COATED PO SCH (09:28)
[2019-09-03] MEDS: METOPROLOL SUCCINATE 50 MG TAB.SR.24H PO SCH (09:28)
[2019-09-03] MEDS: DOCUSATE SODIUM 100 MG CAPSULE PO SCH (09:29)
[2019-09-03] MEDS: FUROSEMIDE 20 MG TABLET PO SCH (09:29)
[2019-09-03] MEDS: LISINOPRIL 10 MG TABLET PO SCH (09:29)
[2019-09-03] MEDS: FAMOTIDINE 20 MG TABLET PO SCH (09:29)
[2019-09-03] MEDS ORDERED: SPIRONOLACTONE 25 MG TABLET PO SCH (10:00)
[2019-09-03 10:15] LABS: CREATINE KINASE MB 0.88 ng/mL (<4.55); TROPONIN I 0.039 ng/mL
--- NOTE | 2019-09-03 14:07 | PDOC TRANSFER SUMMARY ---
General Admission Date/PCP: 08/31/19 00:17 [facility] Transfer Date: 09/03/19 Accepting Facility: [facility] Resuscitation Status: Full Code - Transfer Diagnosis (1) Congestive heart failure (CHF) Is this a current diagnosis for this admission?: Yes (2) Hypertension Is this a current diagnosis for this admission?: Yes (3) Proteinuria Is this a current diagnosis for this admission?: Yes (4) Tobacco use disorder, severe, dependence Is this a current diagnosis for this admission?: Yes - Transfer Medications Transfer Medications: Current Medications Al Hydrox/Mg Hydrox/Simethicone (Maalox Plus Susp 30 Udcup) 30 ml PO Q4HP PRN PRN Reason: HEARTBURN Stop: 09/30/19 02:48 Aspirin (Ecotrin 81 Mg Ec Tablet) 81 mg PO DAILY YULIYA Stop: 09/30/19 09:59 Last Admin: 09/03/19 09:28 Dose: 81 mg Documented by: Atorvastatin Calcium (Lipitor 10 Mg Tablet) 10 mg PO QHS YULIYA Stop: 10/01/19 21:59 Last Admin: 09/02/19 21:50 Dose: 10 mg Documented by: Docusate Sodium (Colace 100 Mg Capsule) 100 mg PO DAILY YULIYA Stop: 09/30/19 09:59 Last Admin: 09/03/19 09:29 Dose: 100 mg Documented by: Famotidine (Pepcid 20 Mg Tablet) 20 mg PO Q12 YULIYA Stop: 09/30/19 09:59 Last Admin: 09/03/19 09:29 Dose: 20 mg Documented by: Furosemide (Lasix 20 Mg Tablet) 20 mg PO DAILY YULIYA Stop: 10/01/19 09:59 Last Admin: 09/03/19 09:29 Dose: 20 mg Documented by: Heparin Sodium (Porcine) (Heparin Inj 5,000 Units/Ml 1 Ml Vial) 5,000 unit SUBCUT Q8 YULIYA Stop: 09/30/19 05:59 Last Admin: 09/03/19 07:06 Dose: Not Given Documented by: Hydralazine HCl (Apresoline Inj/Pf 20 Mg/1 Ml Sdv) 20 mg IV Q4HP PRN PRN Reason: Give For Sbp > 160 / Dbp > 100 Stop: 10/02/19 21:00 Last Admin: 09/02/19 21:50 Dose: 20 mg Documented by: Labetalol HCl (Normodyne Inj 20 Mg/4 Ml Syringe) 20 mg IV Q10MP PRN PRN Reason: KEEP SBP < 160 AND DBP < 100 Stop: 10/02/19 21:57 Levalbuterol HCl (Xopenex Neb 0.63 Mg/3 Ml Ampul) 0.63 mg NEB Q2HP PRN PRN Reason: DIFFICULTY BREATHING Stop: 10/02/19 21:17 Lisinopril (Prinivil 10 Mg Tablet) 20 mg PO DAILY [facility] Stop: 09/30/19 09:59 Last Admin: 09/03/19 09:29 Dose: 20 mg Documented by: Magnesium Hydroxide (Milk Of Magnesia 30 Ml Udcup) 30 ml PO HSP PRN PRN Reason: FOR CONSTIPATION Stop: 09/30/19 02:48 Metoprolol Succinate (Toprol Xl 50 Mg Tab.Sr) 200 mg PO DAILY [facility] Stop: 09/30/19 09:59 Last Admin: 09/03/19 09:28 Dose: 200 mg Documented by: Morphine Sulfate (Morphine 10 Mg/Ml Inj) 2 mg IV Q2HP PRN PRN Reason: PAIN SCALE 1-2/5 Stop: 09/09/19 21:05 Morphine Sulfate (Morphine 10 Mg/Ml Inj) 3 mg IV Q2HP PRN PRN Reason: PAIN SCALE 3-4/5 Stop: 09/09/19 21:06 Morphine Sulfate (Morphine 10 Mg/Ml Inj) 4 mg IV Q2HP PRN PRN Reason: PAIN SCALE 5/5 Stop: 09/09/19 21:06 Nitroglycerin (Nitrostat 0.4 Mg (1/150 Gr) Tabs 25/Bottle) 1 tab SL Q5MP PRN PRN Reason: FOR CHEST PAIN Stop: 10/02/19 21:00 Ondansetron HCl (Zofran Inj/Pf 4 Mg/2 Ml Sdv) 4 mg IV Q6HP PRN PRN Reason: FOR NAUSEA/VOMITING Stop: 09/30/19 02:48 Last Admin: 09/02/19 21:49 Dose: 4 mg Documented by: Sodium Chloride (Saline Flush 2.5 Ml Monoject Prefil Syrin) 2.5 ml IV Q8 YULIYA Stop: 09/30/19 05:59 Last Admin: 09/03/19 07:06 Dose: Not Given Documented by: Spironolactone (Aldactone 25 Mg Tablet) 12.5 mg PO DAILY YULIYA Stop: 10/03/19 09:59 Last Admin: 09/03/19 09:28 Dose: 12.5 mg Documented by: - Allergies Allergies/Adverse Reactions: No Known Allergies Allergy (Verified 08/30/19 20:01) - Diet/Activity Discharge Diet: As Tolerated, Cardiac Hospital Course Hospital Course: Patient presented emergency room with one-week history of dyspnea. Patient states that this dyspnea is worse over the last several days prior to coming to the ER but had became severe in nature over the last 24 hours. His dyspnea is been so severe he had to stop smoking cigarettes and he states it was worse on exertion. He had a nonproductive cough and occult occasional right-sided chest discomfort but denied any other associated signs and symptoms. He admits he had prior episodes with the most recent being 3 months ago at which time he was diagnosed with hypertension and treated with Norvasc. Patient was found to have a BNP greater than 2000 and chest x-ray demonstrating congestive heart failure. Patient was admitted placed on medical surgical floor and diuresed. Patient obtained a echocardiogram with finding his ejection fraction 15%. Patient at this time is on beta-blockers, KRISHAN inhibitor, Spironolactone, and other modalities that are required for systolic congestive heart failure. Dr. Castillo has saw the patient and has talked environment for transfer for further work-up and possible AICD placement. Patient has been accepted by Dr. Montgomery will be accepted patient in transfer. Physical Exam Vital Signs: Temp Pulse Resp BP Pulse Ox 98.4 F 93 26 H 147/89 H 99 09/03/19 12:00 09/03/19 12:00 09/03/19 12:00 09/03/19 12:00 09/03/19 12:00 Intake & Output 09/02/19 09/03/19 09/04/19 06:59 06:59 06:59 Intake Total 915 610 120 Balance 915 610 120 Weight 106.2 kg 105.2 kg General appearance: PRESENT: no acute distress, well-developed, well-nourished Head exam: PRESENT: atraumatic, normocephalic Eye exam: PRESENT: conjunctiva pink, EOMI, PERRLA. ABSENT: scleral icterus Ear exam: PRESENT: normal external ear exam Mouth exam: PRESENT: moist, tongue midline Neck exam: ABSENT: carotid bruit, JVD, lymphadenopathy, thyromegaly Respiratory exam: PRESENT: clear to auscultation lennie. ABSENT: rales, rhonchi, wheezes Cardiovascular exam: PRESENT: RRR. ABSENT: diastolic murmur, rubs, systolic murmur Pulses: PRESENT: normal dorsalis pedis pul Vascular exam: PRESENT: normal capillary refill GI/Abdominal exam: PRESENT: normal bowel sounds, soft. ABSENT: distended, guarding, mass, organolmegaly, rebound, tenderness Rectal exam: PRESENT: deferred Extremities exam: PRESENT: full ROM. ABSENT: calf tenderness, clubbing, pedal edema Neurological exam: PRESENT: alert, awake, oriented to person, oriented to place, oriented to time, oriented to situation, CN II-XII grossly intact. ABSENT: motor sensory deficit Psychiatric exam: PRESENT: appropriate affect, normal mood. ABSENT: homicidal ideation, suicidal ideation Skin exam: PRESENT: dry, intact, warm. ABSENT: cyanosis, rash Results Laboratory Results: 08/30/19 20:35 09/03/19 03:19 09/03/19 03:19 Sodium 142.6 Potassium 4.1 Chloride 107 Carbon Dioxide 22 Anion Gap 14 BUN 20 Creatinine 1.24 Est GFR ( Amer) > 60 Glucose 84 Calcium 9.4 08/30/19 08/30/19 08/31/19 20:35 20:35 07:00 Creatine Kinase 231 H 189 H CK-MB (CK-2) 2.49 Troponin I 0.075 NT-Pro-B Natriuret Pep 2160 H 08/31/19 08/31/19 08/31/19 07:00 14:00 14:00 Creatine Kinase 147 CK-MB (CK-2) 1.10 1.16 Troponin I 0.059 0.051 NT-Pro-B Natriuret Pep 08/31/19 08/31/19 09/02/19 20:14 20:14 21:35 Creatine Kinase 150 129 CK-MB (CK-2) 1.31 Troponin I 0.048 NT-Pro-B Natriuret Pep 09/02/19 09/03/19 09/03/19 21:35 03:19 03:19 Creatine Kinase 99 CK-MB (CK-2) 1.06 0.86 Troponin I 0.032 0.034 NT-Pro-B Natriuret Pep 09/03/19 09/03/19 09:23 09:23 Creatine Kinase 94 CK-MB (CK-2) 0.88 Troponin I 0.039 NT-Pro-B Natriuret Pep Impressions: Chest X-Ray 09/02/19 00:00 IMPRESSION: Improving aeration bilaterally. NUMBER OF VIEWS: TECHNIQUE: LIMITATIONS: None. FINDINGS: IMPRESSION: copyright 2010 [employer]- All Rights Reserved Plan Time Spent: Greater than 30 Minutes
[2019-09-03 16:39] VITALS: BP 134/92
--- NOTE | 2019-09-03 19:43 | Progress Note ---
Provider Note Provider Note: CARDIOLOGY PROGRESS NOTE by Dr. Clementina Castillo on 09/03/2019. SUBJECTIVE: The patient last night her chest pain and his blood pressure was elevated. His chest x-ray showed improvement in the pulmonary edema, and his EKG was unchanged showing LVH with strain pattern. His troponin I done this morning was negative for an acute DC. At present the patient has no chest pain discomfort. There is no PND orthopnea or leg edema. There is no further chest pains. The patient does have shortness of breath with exertion which is with minimal exertion as he has shortness of breath coming back from the bathroom. There is no palpitations or dizziness or syncope or near syncope. The patient is agreeable to be transferred to [facility] in [facility] for further work-up of his cardiomyopathy including cardiac catheterization. I also discussed the possibility that in the future the patient may require referral for heart transplant. PHYSICAL EXAMINATION: The patient is well-built and well-nourished. In no acute distress. Selected Entries 09/03/19 09/03/19 08:00 12:00 Temperature 98.4 F Temperature Oral Source Pulse Rate 93 Respiratory 17 Rate Blood Pressure 147/89 H [Right Upper Arm] Blood Pressure 108 Mean [Right Upper Arm] Blood Pressure Supine Position [Right Upper Arm] O2 Sat by Pulse 99 Oximetry Oxygen Delivery Room Air Method ( includes room air) HEAD: Is atraumatic normocephalic. EYES: Pupils are equal round regular reactive to light accommodation. Extraocular movements are normal. There is no conjunctival pallor. There is no scleral icterus.. Ears: Tympanic membranes are intact. External auditory canals are clear. NOSE: There is no inflammation of the nasal mucous membrane. Mucous membranes of the nose are not inflamed. MOUTH: Mucous membranes of mouth are moist. Tongue is moist. There is no ulcers. There is no bleeding from the gums. THROAT: There is no redness of the oropharynx. There is no exudates. SKIN: There is no skin rashes. There is no petechia or ecchymosis. There is no skin lesions. NECK: Supple. There is no JVD. Carotids are equal there is no bruit there is no lymphadenopathy. There is no goiter. There is no accessory muscle respiration use. TRACHEA is central. LUNGS: There is diminished air entry prolonged expiration. There is a few scattered rhonchi. There is a few bibasilar rales of CHF. On percussion there is hyperresonance. There is no wheezing or dry crackles. HEART: S1-S2 is heard. There is no S3 gallop. There is no S4 gallop. There is systolic murmur in the left sternal border and the apex there is no rub. Abdomen. There is no hepatospleno megaly. Bowel sounds well heard. There is no tender areas masses. There is no rebound guarding or rigidity. EXTREMITIES: Femorals are well felt. There is no femoral bruits. Leg pulses are well felt. There is no pedal edema. There is no DVT or cellulitis. There is no calf tenderness. PROMOTION MANAGER: The patient is conscious awake alert oriented x3 with no focal deficit. PSYCHIATRIC: The patient judgment insight are intact his affect is normal. EKG: Shows sinus rhythm. LVH with strain pattern. Labs- All tests 24 hr 09/02/19 09/02/19 09/03/19 21:35 21:35 03:19 Sodium 142.6 Potassium 4.1 Chloride 107 Carbon Dioxide 22 Anion Gap 14 BUN 20 Creatinine 1.24 Est GFR ( Amer) > 60 Est GFR (MDRD) Non-Af > 60 Glucose 84 Calcium 9.4 Creatine Kinase 129 CK-MB (CK-2) 1.06 Troponin I 0.032 09/03/19 09/03/19 09/03/19 03:19 03:19 09:23 Sodium Potassium Chloride Carbon Dioxide Anion Gap BUN Creatinine Est GFR ( Amer) Est GFR (MDRD) Non-Af Glucose Calcium Creatine Kinase 99 94 CK-MB (CK-2) 0.86 Troponin I 0.034 09/03/19 09:23 Sodium Potassium Chloride Carbon Dioxide Anion Gap BUN Creatinine Est GFR ( Amer) Est GFR (MDRD) Non-Af Glucose Calcium Creatine Kinase CK-MB (CK-2) 0.88 Troponin I 0.039 Chest X-Ray 09/02/19 00:00 IMPRESSION: Improving aeration bilaterally. IMPRESSION/RECOMMENDATION: 1. Shortness of breath which started his dyspnea on exertion to rest shortness of breath with wheezing intermittently. This is secondary to a combination of congestive heart failure systolic versus diastolic and COPD with acute exacerbation, possible interstitial pneumonitis. 2. Congestive heart failure: Systolic versus diastolic. Strongly recommend getting an echocardiogram of the. At present I agree with KRISHAN inhibitors, beta- zack, and Lasix. Further treatment depends on whether the congestive heart failure is systolic or diastolic in etiology. The echocardiogram SINUSShows severely reduced LV ejection fraction. As mentioned earlier will discuss with [facility] and get the patient transferred for initial work-up which includes cardiac catheterization. The patient is agreeable also note that the patient was in the [place] war, and hence need to consider any exposure to toxins, which can explain the patient's cardiomyopathy. Hence the patient needs to be in a tertiary care center. 3. COPD with acute exacerbation. Recommend bronchodilators and possibly antibiotics. 4. History of hypertension: At present well controlled. 5. History of tobacco abuse: Patient counseled to continue to refrain from smoking which is quit recently. 6. Multiple CAD risk factors and history of sudden in the family: 7. Chest pain: Secondary to uncontrolled hypertension. No evidence of DC. Needs cardiac catheterization to exclude coronary artery disease. Medications reviewed management plan medication regimen discussed with the attending provider on the case. Case was discussed with the [facility] who has accepted the patient the patient be transferred to [facility] for further work-up. Discussed the case at length with the patient with patient patient's family, and also with the senior relationship manager at [facility]. Will sign off. Note the patient has been given my contact number to call me to follow-up after discharge from TCU if the patient so desired. The patient is aware of the risks and benefits of transfer. Will sign off.
== END 2019-09-03 17:00 | disposition short-term general hospital (02) | DRG 291 ==
LOC: ER 19:46 → EH 08-31 00:17 → 4N 08-31 12:49
PROVIDERS: ADMIT Emergency Medicine; ATTEND Emergency Medicine
DX: I11.0 Hypertensive heart disease with heart failure (principal); I50.21 Acute systolic (congestive) heart failure; F17.210 Nicotine dependence, cigarettes, uncomplicated; F41.9 Anxiety disorder, unspecified; R80.9 Proteinuria, unspecified; I42.9 Cardiomyopathy, unspecified; Z82.49 Family history of ischemic heart disease and other diseases of the circulatory system; Z83.3 Family history of diabetes mellitus
CPT/HCPCS: 36415; 71045; 80048; 80053; 80061; 80307; 81001; 82550; 82553; 82803; 82962; 83735; 83880; 84439; 84443; 84481; 84484; 85025; 93005; 93010; 93306; 99285; J0360; J1644; J1940; J2270; J2405; J3490